=== PATIENT | female | born 1930 | race African-American/Black ===

== ENCOUNTER 2016-11-22 02:53 | Emergency (ER) | payer MEDICARE, MEDICAID ==
[2016-11-22 04:34] LABS: ALT (SGPT) 16 U/L (8-55); AST (SGOT) 31 U/L (5-34); Alkaline Phosphatase 125 U/L (40-150); Anion Gap 11 mmol/L (10-20); BUN (Urea Nitrogen) 24 mg/dL (9.8-20.1); Bilirubin, Total 0.5 mg/dL (0.2-1.2); Calc. Creatinine Clearance 0 mL/min (70-130); Calcium 9.3 mg/dL (7.8-10.44); Carbon Dioxide 23 mmol/L (23-31); Chloride 109 mmol/L (98-107); Estimated GFR-MDRD 57; Globulin 4.3 g/dL (2.4-3.5); Protein, Total 7.7 g/dL (6.0-8.3)
[2016-11-22 04:37] LABS: Hematocrit 25.4 % (36.0-47.0); Mean Platelet Volume 12.8 fL (7.4-10.4); Red Blood Cell (RBC) Count 3.94 mill/uL (4.20-5.40); White Blood Cell (WBC) Count 7.6 thou/uL (4.8-10.8)
[2016-11-22 04:45] LABS: #Lymphocytes 0.3 thou/uL (1.20-3.40); #Monocytes 0.4 thou/uL (0.11-0.59); #Neutrophils 6.9 thou/uL (1.40-6.50); %Eosinophils 0.4 % (0.0-10.0); %Lymphocytes 4.5 % (21.0-51.0); %Monocytes 4.9 % (0.0-10.0); Anisocytosis MODERATE=16-30 cells (100X) (0-5/hpf); Hypochromia SLIGHT = 6-15 cells (100X) (0-5/hpf); Microcytosis MODERATE=15-30 cells (100X) (0-5/hpf); Poikilocytosis MODERATE=16-30 cells (100X) (0-5/hpf); Polychromasia SLIGHT = 2-3 cells (100X) (0-2/hpf); Schistocytes MODERATE= 6-15 cells (100X) (0-1/hpf); Target Cells SLIGHT = 2-5 cells (100X) (0-1/hpf); Tear Drops SLIGHT = 2-5 cells (100X) (0-1/hpf)
[2016-11-22 05:17] LABS: Bilirubin Negative (Negative); Blood, Urine Trace (Negative); Glucose, Urine (Dipstick) Negative (Negative); Ketone, Urine Negative (Negative); Nitrite Negative (Negative); Protein, Urine (Dipstick) 100 mg/dL (Neg-Trace); Urobilinogen 0.2 mg/dL (0.2-1.0)
[2016-11-22 05:20] LABS: Bacteria/HPF None Seen HPF (None Seen); Hyaline Casts/LPF 7-10 HYALINE CAST LPF (0-3 Hyaline); RBC/HPF 0-3 HPF (0-3); Squamous Epithelial 0-3 HPF (0-3); WBC/HPF 0-3 HPF (0-3)
--- NOTE | 2016-11-22 07:59 | RAD ---
PORTABLE CHEST: Date: 11/22/16 COMPARISON: 07/23/16. FINDINGS: The heart size is enlarged. There are atherosclerotic changes of the aorta. Increased interstitial a lveolar lung changes are more parahilar in distribution, suggestive of pulmonary edema. Changes are more confluent in the right base. It is difficult to exclude a coexistent pneumonia. IMPRESSION: Cardiomegaly with pulmonary edema changes asymmetrically involving the right lung base. This could j ust represent an asymmetric edema pattern, although infiltrate should also be considered. POS: [facility]
--- NOTE | 2016-11-22 08:32 | CT ---
PRELIMINARY REPORT/[facility]/EMERGENCY AFTER HOURS PROCEDURE: EXAM: CT Head Without Intravenous Contrast EXAM DATE/TIME: Exam ordered 11/22/2016 4:19 AM CLINICAL HISTORY: 86 years old, female; Injury or trauma; Fall; Initial encounter; Blunt trauma (contusions or hematom as); Consciousness not specified; Patient HX: S/P fall TECHNIQUE: Axial computed tomography images of the head/brain without intravenous contrast. COMPARISON: No relevant prior studies available. FINDINGS: Brain: Volume loss and chronic small vessel ischemic change. No hemorrhage. Ventricles: Unremarkable. No ventriculomegaly. Bones/joints: Unremarkable. No acute fracture. Soft tissues: Unremarkable. Sinuses: Unremarkable as visualized. No acute sinusitis. Mastoid air cells: Unremarkable as visualized. No mastoid effusion. IMPRESSION: No acute findings. Thank you for allowing us to participate in the care of your patient. Dictated and Authenticated by: Nick Montano MD 11/22/2016 4:44 AM Central Time ([place] \[place]\ [place]) FINAL REPORT CT BRAIN WITHOUT CONTRAST: I agree with the preliminary report given by Dr. Nick Montano of [facility]. POS: [facility]
--- NOTE | 2016-11-22 08:33 | CT ---
PRELIMINARY REPORT/[facility]/EMERGENCY AFTER HOURS PROCEDURE: EXAM: CT Cervical Spine Without Intravenous Contrast EXAM DATE/TIME: Exam ordered 11/22/2016 4:22 AM CLINICAL HISTORY: 86 years old, female; Injury or trauma; Fall; Initial encounter; Blunt trauma; Patient HX: S/P fall TECHNIQUE: Axial computed tomography images of the cervical spine without intravenous contrast. COMPARISON: No relevant prior studies available. FINDINGS: Vertebrae: Unremarkable. No acute fracture. Discs/spinal canal/neural foramina: Degenerative change. No fracture. Chronic pannus formation and e rosion at C1-C2 may indicate inflammatory arthritis. No spinal canal stenosis. Soft tissues: Unremarkable. Lung apices: Incompletely visualized right pleural effusion. IMPRESSION: 1. No fracture. 2. Incompletely visualized right pleural effusion. 3. Chronic findings as above. Thank you for allowing us to participate in the care of your patient. Dictated and Authenticated by: Nick Montano MD 11/22/2016 4:53 AM Central Time ([place] \[place]\ [place]) FINAL REPORT CT CERVICAL SPINE WITH CORONAL AND SAGITTAL REFORMATIONS: I agree with the preliminary report given by Dr. Nick Montano of [facility]. POS: [facility]
== END 2016-11-22 07:28 | disposition home or self-care (01) ==
LOC: ERS 02:53
DX: S00.93XA Contusion of unspecified part of head, initial encounter (principal); J90 Pleural effusion, not elsewhere classified; T68.XXXA Hypothermia, initial encounter; I11.0 Hypertensive heart disease with heart failure; I50.9 Heart failure, unspecified; M19.90 Unspecified osteoarthritis, unspecified site; Z79.82 Long term (current) use of aspirin; Z79.899 Other long term (current) drug therapy; W06.XXXA Fall from bed, initial encounter; Y92.129 Unspecified place in nursing home as the place of occurrence of the external cause
CPT/HCPCS: 36415; 36416; 51701; 70450; 71010; 72125; 80053; 81003; 81015; 85025; 85060; A4353

== ENCOUNTER 2017-02-10 14:00 | Outpatient (CLI) | payer MEDICARE, MEDICAID ==
--- NOTE | 2017-02-10 17:22 | RAD ---
CHEST 2 VIEWS: Date: 02/10/17 HISTORY: Dyspnea. COMPARISON: 11/22/16. FINDINGS: Elongation of aorta. Cardiomegaly. Pulmonary vessels and hilum are normal. Costophrenic angles appear to be clear. Lungs are hyperinflated. Chronic changes are noted. No pneumothorax. Diffuse bone demin eralization. There is atherosclerosis of the aortic knob. IMPRESSION: 1. COPD. Hyperinflation. No acute process. 2. Atherosclerosis and elongation of aorta. POS: [facility]
== END 2017-02-10 14:01 | disposition home or self-care (01) ==
LOC: RAD 14:00
PROVIDERS: ATTEND Internal Medicine
DX: R06.00 Dyspnea, unspecified (principal); J44.9 Chronic obstructive pulmonary disease, unspecified; I70.0 Atherosclerosis of aorta
CPT/HCPCS: 71020

== ENCOUNTER 2017-09-04 02:21 | Inpatient (IN) | payer MEDICARE, MEDICAID ==
[2017-09-04 03:20] LABS: #Lymphocytes 0.5 thou/uL (1.20-3.40); #Monocytes 0.4 thou/uL (0.11-0.59); #Neutrophils 8.1 thou/uL (1.40-6.50); %Eosinophils 0.4 % (0.0-10.0); %Lymphocytes 5.8 % (21.0-51.0); %Monocytes 4.4 % (0.0-10.0); %Neutrophils 89.4 % (42.0-75.0); Hemoglobin 10.9 g/dL (12.0-16.0); Mean Corpuscular HGB CONC 30.6 g/dL (32.0-36.0); Mean Corpuscular Hemoglobin 19.9 pg (27.0-31.0); Mean Corpuscular Volume 64.9 fL (78.0-98.0); Mean Platelet Volume 8.8 fL (7.4-10.4); Platelet Count 160 thou/uL (130-400); RBC Distribution Width 19.8 % (11.5-14.5); Red Blood Cell (RBC) Count 5.49 mill/uL (4.20-5.40); Reflex for Review?? NO; White Blood Cell (WBC) Count 9.1 thou/uL (4.8-10.8)
[2017-09-04 03:24] LABS: Prothrombin Time 13.3 SEC (12.0-14.7)
[2017-09-04 03:31] LABS: ALT (SGPT) 12 U/L (8-55); AST (SGOT) 15 U/L (5-34); Albumin 3.5 g/dL (3.4-4.8); Alkaline Phosphatase 170 U/L (40-150); Anion Gap 16 mmol/L (10-20); BUN (Urea Nitrogen) 44 mg/dL (9.8-20.1); Bilirubin, Total 0.3 mg/dL (0.2-1.2); Calc. Creatinine Clearance 0 mL/min (70-130); Calcium 9.7 mg/dL (7.8-10.44); Carbon Dioxide 20 mmol/L (23-31); Chloride 99 mmol/L (98-107); Estimated GFR-MDRD 25; Globulin 4.4 g/dL (2.4-3.5); Potassium 4.7 mmol/L (3.5-5.1); Protein, Total 7.9 g/dL (6.0-8.3); Sodium 130 mmol/L (136-145)
[2017-09-04 03:33] LABS: Bilirubin Negative (Negative); Blood, Urine Small (Negative); Clarity CLEAR (Clear); Glucose, Urine (Dipstick) >=1000 mg/dL (Negative); Leukocyte Negative (Negative); Nitrite Negative (Negative); Protein, Urine (Dipstick) 30 mg/dL (Neg-Trace)
[2017-09-04 03:38] LABS: Bacteria/HPF None Seen HPF (None Seen); Hyaline Casts/LPF 0-3 HYALINE CAST LPF (0-3 Hyaline); Pathc Cast-AUWi Flag 0.29 (0-2.49); RBC/HPF 0-3 HPF (0-3); Squamous Epithelial 0-3 HPF (0-3); WBC/HPF 0-3 HPF (0-3)
[2017-09-04 03:38] LABS: CKMB 4.7 ng/mL (0-6.6); Troponin I 0.166 ng/mL (< 0.028)
[2017-09-04 03:45] LABS: Glucose 675 mg/dL (83-110)
[2017-09-04 04:01] LABS: Base Excess-Venous 0.5 mmol/L (0 (+/- 2.5)); Bicarbonate (HCO3v) 26.1 mmol/L (1.0-85.0); CO2 Tension (PvCO2) 44.4 mmHg (41.0-51.0); Calcium, Ionized 1.19 mmol/L (1.12-1.32); Hemoglobin - Calc 13.1 g/dL (12.0-18.0); O2 Tension (PvO2) 34.6 mmHg (35.0-45.0); Potassium 4.7 mmol/L (3.4-4.7); T. Carbon Dioxide 27.4 mmol/L (1.0-85.0); pH (Venous) 7.377 (7.35-7.45); vO2 Saturation-calc 64.8 % (94-98)
[2017-09-04] MEDS ORDERED: Insulin Regular 300 UNITS/3 ML VIAL ONE (04:02)
[2017-09-04] MEDS ORDERED: HumaLOG 300 UNITS/3 ML VIAL ONE (04:33)
[2017-09-04] MEDS ORDERED: Insulin Glargine 10 UNITS in Pre-Filled Syringe 1 EACH SC SCH (04:45)
[2017-09-04] MEDS ORDERED: Sodium Chloride 0.9% 1,000 ML IV SCH (05:45)
[2017-09-04 06:46] VITALS: BMI 36.8
[2017-09-04 07:29] LABS: Troponin I 0.238 ng/mL (< 0.028)
--- NOTE | 2017-09-04 08:05 | CT ---
BRAIN CT WITHOUT IV CONTRAST: HISTORY: An 87-year-old female with a history of altered mental status. COMPARISON: 11/22/16 and 07/23/16. FINDINGS: There is motion artifact despite repeating the scan. There is some abnormal low-attenuation change i n the lateral left temporal lobe as well as the left parietal parasagittal region consistent with are as of old infarct or other old insults. No mass or bleed. IMPRESSION: Atrophy and chronic white matter ischemic changes with several small left-sided infarct changes, stab le. No acute process. POS: [facility]
--- NOTE | 2017-09-04 08:32 | RAD ---
AP VIEW OF THE CHEST: INDICATION: Altered mental status. COMPARISON: Prior exam dated 02/10/17. FINDINGS: There is moderate to severe cardiomegaly. There is mild pulmonary vascular congestion. No pleural e ffusion is evident. No focal consolidation is evident. No pneumothorax is evident. IMPRESSION: Cardiomegaly with pulmonary vascular congestion. POS: [facility]
[2017-09-04] MEDS ORDERED: Prevnar 13-Val Conj/PF 0.5 ML SYRINGE IM ONE (08:45)
[2017-09-04] MEDS ORDERED: Bisacodyl 5 MG TAB PO PRN (09:28)
[2017-09-04] MEDS ORDERED: Acetaminophen 325 MG TAB PO PRN (09:28)
[2017-09-04] MEDS ORDERED: Acetaminophen 650 MG Suppository PR PRN (09:28)
[2017-09-04] MEDS ORDERED: Docusate 100 MG CAP PO PRN (09:33)
[2017-09-04] MEDS ORDERED: Dextrose 50% Abboject 50 ML SYRINGE SLOW IVP PRN (09:34)
[2017-09-04] MEDS ORDERED: Dextrose 5% in Water 1,000 ML IV PRN (09:34)
--- NOTE | 2017-09-04 11:53 | PDOC.EVN ---
Event Note - Event Note Event Note: 7:40-8AM Advanced Care Plan discussed with daughter Micki Le. Discussed re: probable new diagnosis of diabetes mellitus, probable ischemic CVA. Also discussed code status. Patient is DNR and continues to be DNR.
[2017-09-04 12:08] LABS: Hemoglobin A1c 11.1 % (4.0-6.0)
--- NOTE | 2017-09-04 12:13 | HP ---
PRIMARY CARE PROVIDER: Denise Varela M.D. CHIEF COMPLAINT: Weakness. HISTORY OF PRESENT ILLNESS: Ms. Parada is a pleasant 87-year-old lady, who was seen at [facility] on 09/04/2017. Patient herself is unable to provide any significant history. Collateral history was obtained from daughter by the bedside as well as review of medical records and discussion with the emergency room physician. The patient is a resident at [facility], and her daughter works at the same facility. jacqueline sees her everyday. She was reportedly doing well yesterday. Overnight, the patient was noted to h ave right-sided weakness. She was also reportedly having slurred speech. She was therefore sent to the emergency room. The patient denies any chest pain. She denies any shortness of breath. She denies any cough, fevers or chills. However, patient is a poor historian overall and therefore review of systems could not b e completed. REVIEW OF OTHER SYSTEMS: Could not be completed because patient is not a good historian. PAST MEDICAL HISTORY: Significant for hypertension, transient ischemic attack, chronic kidney diseas e stage 3, hysterectomy, rhabdomyolysis, congestive heart failure. I note that during her hospitaliz ation here in 06/2016, there was concern about diabetes as well. Currently, she is not on any diabet es medications. PAST SURGICAL HISTORY: Hysterectomy. SOCIAL HISTORY: No history of tobacco use, alcohol use, or recreational drug use. CODE STATUS: I discussed her code status. Ms. Parada is DNR. ALLERGIES: No known drug allergies. CURRENT MEDICATIONS: Amlodipine 10 mg 2 times a day, ferrous sulfate 325 mg 2 times a day, lisinopri l 5 mg daily, multivitamins 1 tablet daily, and Lasix 60 mg daily. FAMILY HISTORY: No family history of premature coronary artery disease. PHYSICAL EXAMINATION: GENERAL: Ms. Parada is awake and alert, not in acute distress. VITAL SIGNS: She is afebrile. Blood pressure is 134/95, pulse 88, respiratory rate of 24, and oxyge n saturations 100% on room air. She is afebrile. She is obese, with a BMI of 36.9. EYES: No scleral icterus. No conjunctival pallor. ENT: Moist mucosal membranes, no oropharyngeal erythema or exudates. NECK: Supple, nontender, trachea is midline. RESPIRATORY: Accessory muscles of breathing are not active. Chest wall movements are symmetric bila terally. LUNGS: Clear to auscultation without wheeze, rhonchi or crepitations. CARDIOVASCULAR: S1 and S2 are heard, regular. Peripheral pulses palpable. No carotid bruit, no per icardial rub. ABDOMEN: Soft, nontender, bowel sounds are heard, no hepatomegaly, no splenomegaly. NEUROLOGIC: Full neurologic examination was not possible secondary to the patient's noncooperation. The patient has left-sided hemineglect. No facial droop. Deep tendon reflexes are 2+, plantars rose ngoing bilaterally. MUSCULOSKELETAL: Power is 5/5 in the right upper and lower extremities. Difficult to assess power i n the left upper and lower extremities due to left-sided hemineglect. SKIN: No rashes or subcutaneous nodules. LYMPHATIC: No cervical lymphadenopathy. PSYCHIATRIC: Normal mood, normal affect, patient is oriented to person, place, and time. LABORATORY DATA: Ms. Parada's labs and investigations were reviewed. I reviewed her electrocardiog terese, which shows sinus tachycardia, no ST changes to suggest an acute coronary syndrome. I also revi ewed her chest x-ray, which does not show any pulmonary infiltrates. She has pulmonary vascular brenda estion. Noncontrast CT scan of the brain did not show any acute intracranial process. She has phillip l white count, microcytic anemia with hemoglobin 10.9, normal platelet count, INR 1.0, sodium decreas ed at 130, normal potassium, creatinine elevated at 2.21, last known creatinine 1.09 in 10/2016, gluc ose elevated at 675, normal anion gap of 16, carbon dioxide slightly decreased at 20, unremarkable li kandi profile and indeterminate troponin I of 0.166, troponin was elevated in the past as well. Urinal ysis is positive for protein, glucose, and small amount of blood. Beta hydroxybutyrate is elevated a t 0.43. ASSESSMENT AND PLAN: Ms. Parada is a pleasant 87-year-old lady, who was seen at [facility] on 09/04/2017. Her problem list includes: 1. Acute on chronic renal failure: Likely prerenal. We will provide patient with gentle hydration, considering the fact that she may also be in a certain degree of volume overload. We will hold neph rotoxic medications including lisinopril. We will recheck creatinine level. 2. Diabetes mellitus. The patient appears to have diabetes mellitus. She did not have a history of diabetes mellitus in the past, according to her daughter. We will check hemoglobin A1c level. We w ill start patient on Accu-Cheks and insulin sliding scale. Currently, patient does not appear to be in diabetic ketoacidosis. 3. Weakness: We will investigate further, including MRI brain to rule out cerebrovascular accident, carotid Dopplers, and 2D echocardiogram. We will also consult Neurology Service. 4. Hypertension: Monitor vital signs, titrate antihypertensives as needed. 5. Congestive heart failure. Monitor oxygenation levels since patient will be receiving hydration f or renal insufficiency. Many thanks for allowing me to participate in your patient's care. Please feel free to contact me wi th any questions or concerns. LEVEL OF RISK: High. LEVEL OF COMPLEXITY: High.
--- NOTE | 2017-09-04 14:46 | ULT ---
CAROTID DOPPLER: DATE: 09/04/17. PROVIDED CLINICAL HISTORY: CVA. FINDINGS: Comparison 04/27/14. There is no evidence for a hemodynamically significant internal carotid artery st enosis by peak systolic velocity or ratio criteria. Antegrade flow is seen in the vertebral arteries . Atherosclerotic plaque is seen involving the left proximal ICA. IMPRESSION: No sonographic evidence for a hemodynamically significant internal carotid artery stenosis. POS: [facility]
[2017-09-04] MEDS: Acetaminophen 500 MG TAB PO SCH ×3 (15:30→23:45)
[2017-09-04] MEDS: traMADol HCl 50 MG TAB PO SCH ×3 (15:30→23:45)
[2017-09-04] MEDS: HumaLOG 300 UNITS/3 ML VIAL SC PRN (15:37)
[2017-09-04] MEDS: Sodium Chloride 0.9% 1,000 ML IV SCH (22:47)
[2017-09-04] MEDS: Ferrous Sulfate 325 MG TAB PO SCH (22:47)
--- NOTE | 2017-09-04 23:45 | CON ---
DATE OF CONSULTATION: 09/04/2017 CONSULTING PHYSICIAN: Hospitalist Service. IMPRESSION: 1. Transient ischemic attack with transient right-sided weakness. 2. Small vessel ischemic disease. 3. Diabetes. 4. Current aspirin use. PLAN: 1. Add statin. 2. Continue aspirin. 3. Patient can be discharged back to the residential. Ms. Parada is an 87-year-old black female with a history of diabetes and general debilitation. She was in a residential. Daughter reports she is unable to walk. She can feed herself, but otherwise requires assistance for all her daily care. She apparently had a change last evening where she devel oped some right-sided weakness. She was brought into the emergency room for evaluation. CT scan of the brain showed chronic small vessel ischemic changes. Her carotid ultrasound does not show any ext racranial stenosis. Her lab work was unremarkable other than elevated blood glucose. PAST MEDICAL HISTORY: Diabetes, arthritis. ALLERGIES: None. SOCIAL HISTORY: No tobacco use. FAMILY HISTORY: Noncontributory. REVIEW OF SYSTEMS: She has no complaints of headache, nausea, chest pain or shortness of breath. PHYSICAL EXAMINATION: GENERAL: She is a fairly overweight, elderly lady lying in bed in no distress. HEENT: Pupils are minimally reactive. Conjunctivae are clear. She is edentulous. NECK: Supple, no lymphadenopathy noted. EXTREMITIES: No cyanosis present. NEUROLOGIC: She is alert and cooperative. Her speech is fluent and clear. She is quite deaf. Cran ial nerves were otherwise intact. Motor exam showed good antigravity strength bilaterally. Her fing er-to-nose movements were accurate. Sensation was grossly intact. Gait is not testable. No abnorma l movements were seen. Studies were reviewed. SUMMARY: This is an elderly lady who is quite debilitated. She was on aspirin prior to the transien t event. I think I would add a statin. At this point, she does not appear to need a cardiac workup based on her lack of history of problems in this area. I do not think an MRI of the brain would add to her care.
[2017-09-05] MEDS: Sodium Chloride 0.9% 1,000 ML IV SCH ×2 (03:34→13:00)
[2017-09-05 05:44] LABS: Anion Gap 9 mmol/L (10-20); BUN (Urea Nitrogen) 21 mg/dL (9.8-20.1); Calc. Creatinine Clearance 47 mL/min (70-130); Carbon Dioxide 23 mmol/L (23-31); Cardiac Risk 6.6 (Less than 4.5); Chloride 110 mmol/L (98-107); Cholesterol 186 mg/dl (< 200 Desired); Estimated GFR-MDRD 48; Glucose 236 mg/dL (83-110); HDL Cholesterol 28 mg/dL (>60 Neg Risk); LDL Cholesterol, Calculated 138 mg/dL; Sodium 138 mmol/L (136-145); Triglycerides 98 mg/dL (Less than 150)
[2017-09-05 06:03] LABS: #Eosinphils 0.1 thou/uL (0.0-0.7); #Lymphocytes 1.6 thou/uL (1.20-3.40); #Monocytes 0.6 thou/uL (0.11-0.59); #Neutrophils 4.1 thou/uL (1.40-6.50); %Basophils 0.3 % (0.0-1.0); %Eosinophils 1.8 % (0.0-10.0); %Lymphocytes 25.7 % (21.0-51.0); %Monocytes 8.7 % (0.0-10.0); %Neutrophils 63.6 % (42.0-75.0); Hemoglobin 9.6 g/dL (12.0-16.0); Mean Corpuscular Hemoglobin 19.6 pg (27.0-31.0); Mean Corpuscular Volume 65.2 fL (78.0-98.0); Platelet Count 181 thou/uL (130-400); RBC Distribution Width 19.5 % (11.5-14.5); White Blood Cell (WBC) Count 6.4 thou/uL (4.8-10.8)
[2017-09-05] MEDS: Acetaminophen 500 MG TAB PO SCH ×3 (06:38→19:29)
[2017-09-05] MEDS: traMADol HCl 50 MG TAB PO SCH ×3 (06:38→19:29)
[2017-09-05] MEDS: HumaLOG 300 UNITS/3 ML VIAL SC PRN ×2 (06:39→13:10)
[2017-09-05] MEDS: glyBURIDE 5 MG TAB PO SCH (08:43)
[2017-09-05] MEDS: Ferrous Sulfate 325 MG TAB PO SCH ×2 (08:43→21:11)
[2017-09-05] MEDS: Multivit, Therapeutic 1 TAB PO SCH (08:44)
[2017-09-05] MEDS: Furosemide 20 MG TAB PO SCH (08:44)
[2017-09-05] MEDS: Amlodipine 10 MG TAB PO SCH (08:44)
[2017-09-05] MEDS: Enoxaparin Sodium 40 MG/0.4 ML SYRINGE SC SCH (08:44)
[2017-09-05] MEDS ORDERED: Lisinopril 5 MG TAB PO SCH (09:00)
[2017-09-05] MEDS ORDERED: Lisinopril 10 MG TAB PO SCH (09:00)
[2017-09-05] MEDS ORDERED: MULTIVITAMIN PO SCH (09:00)
[2017-09-05] MEDS ORDERED: Aspirin 325 mg Enteric Coated Tablet PO SCH (09:00)
--- NOTE | 2017-09-05 16:23 | PDOC.PN ---
- Subjective Encounter Start Date: 09/05/17 Encounter Start Time: 07:20 Pt seen for followup re: acute renal failure. Denies chest pain, shortness of breath, fevers or chills. - Objective Resuscitation Status: Resuscitation Status DNR:Do Not Resuscitate MAR Reviewed: Yes Vital Signs & Weight: Vital Signs (12 hours) Temp Pulse Pulse Pulse Resp BP BP 09/05/17 15:33 98.7 F 98 16 09/05/17 11:31 98.5 F 85 16 09/05/17 11:29 93 88 149/79 H 119/73 09/05/17 08:44 77 09/05/17 08:43 98.5 F 77 16 09/05/17 07:42 98.5 F 77 16 BP Pulse Ox 09/05/17 15:33 112/69 97 09/05/17 11:31 124/71 95 09/05/17 11:29 09/05/17 08:44 09/05/17 08:43 95 09/05/17 07:42 120/70 95 Weight Admit Weight 215 lb Weight 215 lb Result Diagrams: 09/05/17 04:56 09/05/17 04:56 Additional Labs: Accuchecks 09/05/17 09/05/17 09/04/17 10:53 05:46 20:24 POC Glucose 222 H 248 H 285 H 09/04/17 17:10 POC Glucose 227 H EKG Reviewed by me: Yes (Tele: [place]) Phys Exam - Physical Examination Constitutional: NAD HEENT: moist MMs Neck: supple Respiratory: clear to auscultation bilateral Cardiovascular: RRR Gastrointestinal: soft Neurological: moves all 4 limbs Psychiatric: normal affect Dx/Plan (1) JULIA (acute kidney injury) Code(s): N17.9 - ACUTE KIDNEY FAILURE, UNSPECIFIED Status: Acute Comment: Improving (2) Weakness Code(s): R53.1 - WEAKNESS Status: Acute Comment: Improved, appreciate neurology input (3) Arrhythmia Code(s): I49.9 - CARDIAC ARRHYTHMIA, UNSPECIFIED Status: Acute Comment: cardiology consult pending (4) Dementia Code(s): F03.90 - UNSPECIFIED DEMENTIA WITHOUT BEHAVIORAL DISTURBANCE Status: Chronic Qualifiers: Dementia type: Alzheimer's disease Alzheimer's disease onset: unspecified onset Dementia behavioral disturbance: without behavioral disturbance Qualified Code(s): G30.9 - Alzheimer's disease, unspecified; F02.80 - Dementia in other diseases classified elsewhere without behavioral disturbance; F02.80 - Dementia in other diseases classified elsewhere without behavioral disturbance; F02.80 - Dementia in other diseases classified elsewhere without behavioral disturbance Comment: stable (5) HTN (hypertension) Code(s): I10 - ESSENTIAL (PRIMARY) HYPERTENSION Status: Chronic Qualifiers: Hypertension type: essential hypertension Qualified Code(s): I10 - Essential (primary) hypertension Comment: Monitor vital signs, titrate antihypertensives as needed - Plan * . Review of Systems - Medications/Allergies Allergies/Adverse Reactions: Allergies Allergy/AdvReac Type Severity Reaction Status Date / Time No Known Allergies Allergy Verified 09/04/17 06:43 Medications: Current Medications Acetaminophen (Tylenol) 650 mg PO Q4H PRN PRN Reason: Headache/Fever or Pain Acetaminophen (Tylenol) 650 mg [place] Q4H PRN PRN Reason: Headache/Fever or Pain Acetaminophen (Tylenol) 500 mg PO Q6HR [facility] Last Admin: 09/05/17 13:20 Dose: Not Given Amlodipine Besylate (Norvasc) 10 mg PO DAILY [facility] Last Admin: 09/05/17 08:44 Dose: 10 mg Aspirin (Aspirin) 325 mg PO DAILY [facility] Atorvastatin Calcium (Lipitor) 10 mg PO HS [facility] Bisacodyl (Dulcolax) 10 mg PO DAILYPRN PRN PRN Reason: Constipation Dextrose/Water (Dextrose 50%) 25 gm SLOW IVP PRN PRN PRN Reason: Hypoglycemia Docusate Sodium (Colace) 300 mg PO HS PRN PRN Reason: Constipation Enoxaparin Sodium (Lovenox) 40 mg SC 0900 [facility] Last Admin: 09/05/17 08:44 Dose: 40 mg Ferrous Sulfate (Feosol) 325 mg PO BID [facility] Last Admin: 09/05/17 08:43 Dose: 325 mg Furosemide (Lasix) 20 mg PO DAILY [facility] Last Admin: 09/05/17 08:44 Dose: 20 mg Glucagon (Glucagon) 1 mg IM PRN PRN PRN Reason: Hypoglycemia Glyburide (Diabeta) 5 mg PO QAM-WM [facility] Last Admin: 09/05/17 08:43 Dose: 5 mg Dextrose/Water (D5w) 1,000 mls @ 0 mls/hr IV .Q0M PRN; As Directed PRN Reason: Hypoglycemia Sodium Chloride (Normal Saline 0.9%) 1,000 mls @ 70 mls/hr IV .[id number] [facility] Last Admin: 09/05/17 13:00 Dose: 1,000 mls Insulin Human Lispro (Humalog) 0 units SC .MILD SLIDING SCALE PRN PRN Reason: Mild Correctional Scale Last Admin: 09/05/17 13:10 Dose: 3 unit Multivitamins (Theragran) 1 tab PO DAILY [facility] Last Admin: 09/05/17 08:44 Dose: 1 tab Sodium Chloride (Flush - Normal Saline) 10 ml IVF Q12HR [facility] Last Admin: 09/05/17 08:44 Dose: 10 ml Sodium Chloride (Flush - Normal Saline) 10 ml IVF PRN PRN PRN Reason: Saline Flush Tramadol HCl (Ultram) 50 mg PO Q6HR [facility] Last Admin: 09/05/17 13:20 Dose: Not Given
[2017-09-05] MEDS ORDERED: Atorvastatin Calcium 10 MG TAB PO SCH (21:00)
[2017-09-06] MEDS: traMADol HCl 50 MG TAB PO SCH ×3 (00:41→12:53)
[2017-09-06] MEDS: Acetaminophen 500 MG TAB PO SCH ×3 (00:41→12:53)
[2017-09-06] MEDS: Sodium Chloride 0.9% 1,000 ML IV SCH (03:30)
[2017-09-06 05:19] LABS: Anion Gap 10 mmol/L (10-20); BUN (Urea Nitrogen) 16 mg/dL (9.8-20.1); Calc. Creatinine Clearance 62 mL/min (70-130); Calcium 8.9 mg/dL (7.8-10.44); Carbon Dioxide 22 mmol/L (23-31); Chloride 109 mmol/L (98-107); Estimated GFR-MDRD 68; Glucose 132 mg/dL (83-110); Potassium 3.4 mmol/L (3.5-5.1); Sodium 138 mmol/L (136-145)
[2017-09-06 05:42] LABS: #Eosinphils 0.2 thou/uL (0.0-0.7); #Lymphocytes 1.6 thou/uL (1.20-3.40); #Monocytes 0.5 thou/uL (0.11-0.59); #Neutrophils 4.4 thou/uL (1.40-6.50); %Basophils 0.2 % (0.0-1.0); %Eosinophils 2.5 % (0.0-10.0); %Lymphocytes 23.3 % (21.0-51.0); %Monocytes 7.4 % (0.0-10.0); %Neutrophils 66.6 % (42.0-75.0); Hemoglobin 9.6 g/dL (12.0-16.0); Mean Corpuscular Hemoglobin 19.8 pg (27.0-31.0); Mean Corpuscular Volume 65.9 fL (78.0-98.0); Mean Platelet Volume 8.9 fL (7.4-10.4); Platelet Count 217 thou/uL (130-400); RBC Distribution Width 19.8 % (11.5-14.5); Red Blood Cell (RBC) Count 4.86 mill/uL (4.20-5.40); White Blood Cell (WBC) Count 6.7 thou/uL (4.8-10.8)
--- NOTE | 2017-09-06 08:33 | PDOC.CTH ---
<Nica Quintanilla - Last Filed: 09/06/17 08:29> Cardiology Progress Note - Subjective The pt seen and examined. No overnight events. No cardiac complaints. She is resting well at this time without any cardiac complaints. - Objective Vital Signs Temp Pulse Resp BP Pulse Ox 09/06/17 07:47 98.2 F 76 16 130/64 97 09/06/17 04:00 98.6 F 85 18 135/84 98 09/06/17 00:47 63 117/66 09/06/17 00:00 98.5 F 83 18 172/78 H 98 09/05/17 20:47 98.0 F 63 18 98 Admit Weight 215 lb Weight 213 lb 3.2 oz - Physical Examination General/Neuro: other: (confused) Lungs: other: (diminished at bases) Heart: RRR Abdomen: soft Extremities: other: (1+ pitting BLE edema) - Telemetry Telemetry Rhythm: SR 80s - Labs Result Diagrams: 09/06/17 04:31 09/06/17 04:31 Troponin/CKMB CK-MB (CK-2) 4.7 ng/mL (0-6.6) 09/04/17 03:04 Troponin I 0.270 ng/mL (< 0.028) H 09/04/17 09:48 - Assessment/Plan 1. 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 VS is stable 2. JULIA on CKD - improved; stop NS IV now. 3. HTN - stable with current medication 4. Hyperlipidemia - on Statin 5. PAD - asymptomatic; cont. to monitor 6. Dementia - stable MAR reviewed * Echo on 09/05/17 showed EF 55-60%, grade I diastolic dysfunction, mild MR, AR , TR, and HI. * From Cardiac standpoint, the pt is stable to tx to [facility]. Review of Systems - Review of Systems Constitutional: reports: no symptoms reported EENTM: reports: no symptoms reported Respiratory: reports: no symptoms reported Cardiac (ROS): reports: no symptoms reported ABD/GI: reports: no symptoms reported : reports: no symptoms reported Musculoskeletal: reports: no symptoms reported Skin: reports: no symptoms reported <Pipe Arias - Last Filed: 09/07/17 22:11> Cardiology Progress Note - Objective Admit Weight 215 lb Weight 213 lb 3.2 oz - Labs Result Diagrams: 09/06/17 04:31 09/06/17 04:31 Troponin/CKMB CK-MB (CK-2) 4.7 ng/mL (0-6.6) 09/04/17 03:04 Troponin I 0.270 ng/mL (< 0.028) H 09/04/17 09:48 - Assessment/Plan Pt. was seen and eval. by me. I agree with the A/P by the POORNIMA Quintanilla.
[2017-09-06] MEDS: Enoxaparin Sodium 40 MG/0.4 ML SYRINGE SC SCH (08:46)
[2017-09-06] MEDS: Multivit, Therapeutic 1 TAB PO SCH (08:46)
[2017-09-06] MEDS: Ferrous Sulfate 325 MG TAB PO SCH (08:46)
[2017-09-06] MEDS: Amlodipine 10 MG TAB PO SCH (08:46)
[2017-09-06] MEDS: Furosemide 20 MG TAB PO SCH (08:46)
[2017-09-06] MEDS: glyBURIDE 5 MG TAB PO SCH (08:46)
[2017-09-06] MEDS ORDERED: Aspirin 325 MG TAB PO SCH (09:00)
[2017-09-06] MEDS ORDERED: Potassium Chloride 20 MEQ TAB PO SCH (11:00)
[2017-09-06 12:26] VITALS: BP 140/68; TEMP 98.8
--- NOTE | 2017-09-06 12:42 | CON ---
CARDIOLOGY CONSULT DATE OF CONSULTATION: 09/05/2017 PRIMARY CARE PHYSICIAN: Dr. Anali Mata. PRIMARY COMPRESSOR STATION ENGINEER: Dr. Mahsa Arias. REFERRING PHYSICIAN: Dr. Villanueva. REASON FOR CARDIOLOGY CONSULT: EKG change most likely second-degree AV block type 1. HISTORY OF PRESENT ILLNESS: Ms. Parada is a very pleasant 87-year-old - [place]ij[place] female with a significant history of chronic kidney disease, type 2 diabetes, hypertension, and aortic and mitral valve regurgitation. At this moment, patient is alert; however, oriented to self only. The patient's information was obtained from patient's medical record and from Dr. Mahsa Arias ' office records. The patient was transferred from halfway due to right- sided weakness. The patient's carotid Doppler study shows negative of stenosis in bilateral carotid arteries and the patient's CT scan the brain shows chronic small vessel ischemic change. Neurology consult was also done. The patient's condition is stable. There is no further evaluation for the neurologic status. However, this morning around 9:00, patient on telemetry report showed several episodes of a few seconds of second-degree AV block type 1. The patient's vital sign tend to be stable during the episodes. During the Cardiology consult assessment, the patient denies shortness of breath, palpation or fluttering in her chest, fatigue or dizziness, lightheadedness, or any other cardiac complaints. The patient had echocardiogram in 10/2013, which shows EF of 60-65%, mild mitral valve regurgitation, mild MAC, mild aortic valve sclerosis, and mild-to- moderate tricuspid regurgitation, and [id number] pulmonic insufficiency. Patient has PAVITHRA in 05/2017 for diminished pulses in lower extremities, which shows right PAVITHRA 0.78 and a left PAVITHRA 0.85, which is suggestive of mild bilateral PVCs; however, due to the patient's age and physical condition, there is no further evaluation for patient's PVD, first-degree AV block and occasional PACs and heart rate 85 and also patient's echocardiogram in 2014 shows ejection fraction 60-65%, [id number] mitral valve regurgitation, moderate aortic valve regurgitation, mild tricuspid regurgitation, mild pulmonary valve regurgitation, mild thickening of anterior mitral valve leaflet. She had a stress test was done in 2005, which shows normal and she never had a cardiac catheterization before according to the Dr. Jeffrey's office record. PAST MEDICAL HISTORY: 1. Hypertension. 2. Transient ischemic attack. 3. Chronic kidney disease, stage 3. 4. Congestive heart failure. 5. Diabetes. 6. Pneumonia. 7. Asthma. 8. Anemia. PAST SURGICAL HISTORY: 1. Hysterectomy. 2. Colonoscopy. SOCIAL HISTORY: No history of tobacco, EtOH, or illicit drug abuse. FAMILY HISTORY: There is no significant history of CAD in her family's. ALLERGIES: No known drug allergies. HOME MEDICATIONS: Travatan Z to each eye once a day, iron supplement 325 mg once a day, lisinopril 5 mg once a day, multivitamin once a day, amlodipine 10 mg once a day, Lasix 20 mg once a day. REVIEW OF SYSTEMS: Could not obtain due to confusion and she is not a good historian. However, at this moment, the patient denies any pain, shortness of breath, dizziness, lightheadedness. PHYSICAL EXAMINATION: GENERAL: The patient awake, alert, in no acute distress. VITAL SIGNS: Blood pressure 120/70, pulse is 77, respiratory rate is 16, O2 sat 95% with room air, temperature 98.5. HEAD: Normocephalic, atraumatic. EYES: Extraocular muscle movement intact. ENT: Mouth, nose, and oral mucosa are moist without lesion. NECK: Supple, normal range of motion. RESPIRATORY: Clear to auscultation bilaterally, but diminished at the bases. No wheezing, rales, or rhonchi noted. CARDIOVASCULAR: Regular rhythm. There are S1, S2. There are no S3 or S4. No bruits noted. No murmur noted. Peripheral pulses palpable, but diminished in bilateral dorsal pedis and posterior tibial and popliteal. There is no bruit to the bilateral carotid pulses. ABDOMEN: Soft, nontender. No mass to palpate. Hypoactive. MUSCULOSKELETAL: Patient able to move all extremities, but very weak. SKIN: No rash, lesion, or bruise noted. PSYCHIATRIC: Normal mood, normal affect. LABORATORY AND DIAGNOSTIC DATA: WBC 6.4, hemoglobin 9.6, hematocrit 30.2, platelet 181,000. Sodium 138, potassium 4.0, BUN 21, creatinine 1.26, glucose 236, cholesterol 186, triglyceride 98, HDL 28, LDL 138. Carotid Doppler shows no significant internal carotid artery stenosis. ASSESSMENT AND PLAN: 1. Second-degree atrioventricular block with type 1. The telemetry record shows the patient has several episodes of second-degree atrioventricular block type 1; however, due to patient's age and the patient's physical condition and also patient's chronic anemia and the kidney functions, the patient is not a good candidate for further cardiac workup and pacemaker placement at this moment. We would like to continue to monitor on the telemetry and we like to adjust the medication as appropriate. 2. Acute kidney injury on chronic renal failure. Patient's kidney function and creatinine level has been improved. We would like to continue to monitor at this moment. 3. Hypertension. The patient's blood pressure has been stable at this moment, we would like to continue current medication. 4. Diabetes type 2 seems like this is her first time finding of diagnosis of diabetes. She is on blood AC and h.s. glucose checks with a sliding scale Humalog order, which is managed by primary care doctor. 5. Peripheral vascular disease. According to Dr. Jeffrey's office record, patient had a [id number]-um-esliekxf bilateral peripheral vascular disease. However, due to patient's age and physical condition and also patient's hemoglobin and creatinine level, there are no plan for further evaluation for this condition. We would like to continue to monitor the patient's symptom at this moment. 6. Hyperlipidemia. Patient is on atorvastatin 10 mg once a day. Thank you for allowing the Cardiology Service to participate in care of this patient. We will follow along with the patient care team and make a further recommendation as appropriate. BRISSA
--- NOTE | 2017-09-06 12:43 | ADD-CON ---
ADDENDUM DATE OF CONSTATION: 09/05/2017 DATE OF ADMISSION: 09/04/2017 Please refer to the notes already dictated by the nurse practitioner Nica Quintanilla previously today. INDICATION FOR CONSULTATION: This is an 87-year-old female I followed for many years, who was in a [facility] and was felt to have a possible TIA or CVA, was sent to the emergency room, then was admi tted to the hospital for possible CVA. CT scan indicates that the patient has had old chronic ischem ic changes, but nothing acute. She still is able to give some histories verbally. She is not quite sure where she is, but she does talk. She does answer a few questions. She is really not aware of h er surroundings, but that she has had no other acute problems. It was noted on the telemetry that kieran phillips did have what appeared to be a second-degree heart block type 1 in the form of Wenckebach and this is obviously not a significant problem with this lady. She has had no other significant cardiac prob lems recently that I am aware of. She denies any chest pain, but she is not the best historian. At this time, she appears to be stable from a cardiac standpoint, her vital signs also remained stable. The heart rate is in the 80s and shows a sinus rhythm, blood pressure is like 112/69 previously was 149/79. Please refer to the notes dictated by nurse practitioner for past medical history, social history, re view of systems, allergies and medications. PHYSICAL EXAMINATION: GENERAL: Reveals an elderly female who is very pleasant. She is alert. She is not oriented. VITAL SIGNS: Her blood pressure 112/69, heart rate is 98 and regular, respiratory rate 16. She is a febrile. HEENT: Shows head to be normocephalic, atraumatic. Carotid pulses are present. I cannot hear any b ruits. CHEST: Clear to auscultation. There were no rales, rhonchi or wheezing. CARDIOVASCULAR: Exam reveals a regular rate and rhythm. She has a normal S1, S2. I cannot hear an S3 nor an S4. She has a very soft systolic murmur at the apex. She also has a very soft systolic mu rmur over the aortic area. She does have a history of aortic valve sclerosis in the past. ABDOMEN: Unremarkable. Obese. Positive bowel sounds are present. EXTREMITIES: Showed no clubbing or cyanosis. Pedal pulses are difficult to palpate. NEUROLOGIC: The patient obviously is demented, but there were no gross focal motor deficits noted at this time. She did not appear to me to have any significant left or right-sided weakness and appear s to be otherwise pretty much at her baseline. LABORATORY DATA: Shows hemoglobin 9.6, hematocrit was 32 and WBC of 6.4. Her creatinine is 1.26 wit h a BUN of 21, chloride was 110. Sodium is 138, potassium is 4.0. She does have diabetes and blood sugar is ranging anywhere between 285 down to 101. IMPRESSION: 1. Elderly female with possible transient ischemic attack, which appears to be stable at this time, I would continue her medications. She is on aspirin and has been given Lovenox in a deep venous thro mbosis prophylaxis dose, could always consider Plavix in this lady, but she obviously is at higher ri sk for falls. 2. History of hypertension. This is stable at this time. 3. History of diabetes, also appears to be relatively stable. This is being dealt with by the [facility] service. 4. Dementia, but she appears to be pretty much at her baseline. 5. Hypertension. This is under good control. We will continue her medications. At this time, I do not have any other further advice for this lady from a cardiac standpoint. 6. History of significant heart block type 2 with Wenckebach. This is only very short intermittent episodes and I would not be concerned about in this lady, otherwise, she remains in sinus rhythm, jarrod pite being 87 years old. We would be more than happy to continue to follow the patient with you, but I would leave it is my opinion that she would be stable and [facility].
--- NOTE | 2017-09-07 09:02 | DIS ---
DATE OF ADMISSION: 09/04/2017 DATE OF DISCHARGE: 09/06/2017 PRIMARY CARE PROVIDER: Denise Varela M.D. DISCHARGE DIAGNOSIS: 1. Transient ischemic attack. 2. Second degree atrioventricular block type 1. CONSULTATIONS DURING THIS HOSPITALIZATION: Cardiology, Dr. Arias, Neurology, Michel. DISCHARGE MEDICATIONS: Aspirin 325 mg daily, Lipitor 10 mg at bedtime, Norvasc 10 mg daily, acetamin ophen p.r.n., ferrous sulfate 325 mg 2 times a day, Colace 300 mg at bedtime as needed, Lasix 20 mg d aily, lisinopril 5 mg daily, multivitamins 1 tablet daily, tramadol 50 mg every 6 hours. HOSPITAL COURSE: Ms. Parada is a pleasant 87-year-old lady who was admitted to [facility] on 09/04/2017 for transient right-sided weakness. She was started on statins. Her asp irin was continued. She was seen by Neurology service. Her symptoms resolved and it was advised cookie t she be discharged back to [facility]. On 09/05/2017, she was found to have second degr ee type 1 AV block. She had a 2D echocardiogram, which showed left ventricular ejection fraction of 55-60% and diastolic dysfunction. Cardiology service did not recommend any changes to her medication s. She is being discharged back to [facility] in a stable condition. On the day of discharge, she has white count 6700, hemoglobin 9.6, platelet count 217,000, normal sod ium, decreased potassium of 3.4, which is being replaced and creatinine of 0.94. During this hospita lization, she had triglycerides 98, cholesterol 186, LDL cholesterol 138 and HDL cholesterol 28. TSH was normal at 0.7416. Many thanks for allowing me to participate in this patient's care. Please feel free to contact me wi th any questions or concerns. DISCHARGE DESTINATION: [facility]. TOTAL AMOUNT OF TIME SPENT COORDINATING THIS DISCHARGE: Thirty three minutes.
--- NOTE | 2017-09-17 12:50 | EKG ---
Test Reason : Blood Pressure : / mmHG Vent. Rate : 102 BPM Atrial Rate : 102 BPM P-R Int : 212 ms QRS Dur : 086 ms QT Int : 338 ms P-R-T Axes : 063 056 -04 degrees QTc Int : 440 ms Sinus tachycardia with 1st degree A-V block with Premature atrial complexes Abnormal QRS-T angle, consider primary T wave abnormality No STEMI Abnormal ECG Confirmed by MIRELLA Amaya, MARJAN ([id number]), science editor KIESHA CAMARA ([id number]) on 09/17/2017 12:49:56 PM Referred By: Confirmed By:MARJAN VU M.D.
== END 2017-09-06 14:21 | DRG 69 ==
LOC: ERS 02:21 → 2SE 04:16
PROVIDERS: ADMIT Internal Medicine; ATTEND Internal Medicine
DX: G45.9 Transient cerebral ischemic attack, unspecified (principal); N17.9 Acute kidney failure, unspecified; I13.0 Hypertensive heart and chronic kidney disease with heart failure and stage 1 through stage 4 chronic kidney disease, or unspecified chronic kidney disease; E11.22 Type 2 diabetes mellitus with diabetic chronic kidney disease; I15.0 Renovascular hypertension; I44.1 Atrioventricular block, second degree; E11.51 Type 2 diabetes mellitus with diabetic peripheral angiopathy without gangrene; E78.5 Hyperlipidemia, unspecified; G30.9 Alzheimer's disease, unspecified; F02.80 Dementia in other diseases classified elsewhere, unspecified severity, without behavioral disturbance, psychotic disturbance, mood disturbance, and anxiety; I50.9 Heart failure, unspecified; N18.3 Chronic kidney disease, stage 3 (moderate); D63.1 Anemia in chronic kidney disease
CPT/HCPCS: 36415; 36416; 51701; 70450; 71045; 80048; 80053; 80061; 81003; 81015; 82010; 82140; 82330; 82553; 82803; 83036; 83605; 83735; 83880; 84100; 84443; 84484; 85025; 85610; 90471; 90670; 93005; 93306; 93880; 96360; 96361; 96374; A4216; A4353; G0009; G8978-GP-CM; G8979-GP-CL; G8987-GO-CM; G8988-GO-CL; G8996-GN-CK; G8997-GN-CJ; J1650; J1815

== ENCOUNTER 2017-09-11 13:25 | Emergency (ER) | payer MEDICARE, MEDICAID ==
[~2017-09-11 13:25] MED LIST: ISOVUE-370 76%-LOCM 1 ML ONE
[2017-09-11 14:04] LABS: Hemoglobin 10.2 g/dL (12.0-16.0); Mean Corpuscular HGB CONC 31.7 g/dL (32.0-36.0); Mean Corpuscular Hemoglobin 20.6 pg (27.0-31.0); Mean Corpuscular Volume 64.9 fL (78.0-98.0); Mean Platelet Volume 8.1 fL (7.4-10.4); Platelet Count 207 thou/uL (130-400); RBC Distribution Width 19.4 % (11.5-14.5); Red Blood Cell (RBC) Count 4.96 mill/uL (4.20-5.40); White Blood Cell (WBC) Count 8.2 thou/uL (4.8-10.8)
[2017-09-11 14:25] LABS: ALT (SGPT) 40 U/L (8-55); AST (SGOT) 130 U/L (5-34); Albumin 3.2 g/dL (3.4-4.8); Alkaline Phosphatase 204 U/L (40-150); Anion Gap 13 mmol/L (10-20); BUN (Urea Nitrogen) 25 mg/dL (9.8-20.1); Bilirubin, Total 1.1 mg/dL (0.2-1.2); Calc. Creatinine Clearance 0 mL/min (70-130); Carbon Dioxide 21 mmol/L (23-31); Chloride 103 mmol/L (98-107); Estimated GFR-MDRD 41; Globulin 3.9 g/dL (2.4-3.5); Glucose 255 mg/dL (83-110); Potassium 4.6 mmol/L (3.5-5.1); Protein, Total 7.1 g/dL (6.0-8.3); Sodium 132 mmol/L (136-145)
[2017-09-11 14:30] LABS: CKMB 1.2 ng/mL (0-6.6); Troponin I 0.101 ng/mL (< 0.028)
[2017-09-11 14:42] LABS: #Lymphocytes 1.2 thou/uL (1.20-3.40); #Monocytes 0.3 thou/uL (0.11-0.59); #Neutrophils 6.6 thou/uL (1.40-6.50); %Basophils 0.1 % (0.0-1.0); %Eosinophils 0.4 % (0.0-10.0); %Lymphocytes 15.2 % (21.0-51.0); %Monocytes 3.6 % (0.0-10.0); %Neutrophils 80.7 % (42.0-75.0); Acanthocytes SLIGHT = 1-5 cells (100X) (None Seen); Anisocytosis SLIGHT = 6-15 cells (100X) (0-5/hpf); Hypochromia SLIGHT = 6-15 cells (100X) (0-5/hpf); MDiff Complete? YES; PLT Morphology Comment Appears Adequate; Schistocytes SLIGHT = 2-5 cells (100X) (0-1/hpf)
--- NOTE | 2017-09-11 15:08 | ULT ---
RIGHT UPPER QUADRANT ULTRASOUND: CLINICAL HISTORY: Right upper quadrant pain. FINDINGS: There is decreased acoustic penetration of the right upper quadrant due to patient body habitus. Thi s does limit visualization of the liver, precluding reliable evaluation. Low-level echoes in the gal lbladder lumen are present. The gallbladder wall is thickened at 4 mm. De Santiago's sign is reported as negative. No shadowing cholelithiasis. The common duct is normal. There is no ascites. IMPRESSION: 1. Decreased acoustic penetration of the right upper quadrant which limits the sensitivity of the ev aluation. 2. There is mild wall prominence of the gallbladder with low level echoes that may relate to gallbla dder sludge. Correlate clinically to exclude evidence of developing cholecystitis. POS: DENISE
--- NOTE | 2017-09-11 16:08 | CT ---
CT ABDOMEN AND PELVIS WITH CONTRAST 09/11/17 HISTORY: Abdominal pain. COMPARISON: None. FINDINGS: Some mild atelectatic changes in the lung bases. Calcified granuloma in the left lung base. No perica rdial effusion. There is a large amount of small bowel containing diastasis recti. Moderate stool burden of the recta l vault. The rectum measures up to 7 cm in size. No free intraperitoneal gas or fluid. There is mild fullness of the left adrenal gland. No nephrouret erolithiasis or hydroureteronephrosis. No significance of recently passed stone. There are a few calc ifications in both renal parenchyma felt to be more likely vascular than actual stones. Noncontrast evaluation of the liver, gallbladder, and spleen are unremarkable. There is air fluid lev el in the esophagus. Moderate facet arthropathy lower lumbar spine. Moderate degenerative changes of the pubic symphysis. IMPRESSION: 1. No nephroureterolithiasis or hydroureteronephrosis. No secondary evidence of recently passed stone. 2. No acute inflammatory process abdomen or pelvis. 3. Mild diastasis recti containing large and small bowel. No evidence of obstruction. 4. Mild stool impaction of the rectal vault. 5. Mild fullness left adrenal gland. Nonemergent adrenal protocol CT may be performed if clinica lly warranted. POS: DENISE
== END 2017-09-11 17:30 | disposition home or self-care (01) ==
LOC: ERS 13:25
DX: R10.11 Right upper quadrant pain (principal); I13.0 Hypertensive heart and chronic kidney disease with heart failure and stage 1 through stage 4 chronic kidney disease, or unspecified chronic kidney disease; I50.9 Heart failure, unspecified; N18.9 Chronic kidney disease, unspecified; Z86.73 Personal history of transient ischemic attack (TIA), and cerebral infarction without residual deficits; Z79.899 Other long term (current) drug therapy
CPT/HCPCS: 36415; 74177; 76705; 80053; 82553; 83690; 84484; 85025; 93005; 94760

== ENCOUNTER 2017-10-30 17:51 | Inpatient (IN) | payer MEDICARE, MEDICAID ==
[2017-10-30 18:55] LABS: #Eosinphils 0.1 thou/uL (0.0-0.7); #Lymphocytes 1.8 thou/uL (1.20-3.40); #Monocytes 0.4 thou/uL (0.11-0.59); #Neutrophils 3.6 thou/uL (1.40-6.50); %Basophils 0.5 % (0.0-1.0); %Eosinophils 1.1 % (0.0-10.0); %Monocytes 7.1 % (0.0-10.0); %Neutrophils 61.3 % (42.0-75.0); Hemoglobin 11.6 g/dL (12.0-16.0); Mean Corpuscular HGB CONC 29.5 g/dL (32.0-36.0); Mean Corpuscular Hemoglobin 19.7 pg (27.0-31.0); Mean Corpuscular Volume 66.8 fL (78.0-98.0); Mean Platelet Volume 7.1 fL (7.4-10.4); Platelet Count 253 thou/uL (130-400); RBC Distribution Width 22.2 % (11.5-14.5); Red Blood Cell (RBC) Count 5.89 mill/uL (4.20-5.40); White Blood Cell (WBC) Count 5.8 thou/uL (4.8-10.8)
--- NOTE | 2017-10-30 18:58 | RAD ---
PORTABLE AP CHEST X-RAY: 10/30/17 HISTORY: Chest pain. COMPARISON: 09/04/17 FINDINGS: The cardiac silhouette is magnified by projection but does appear enlarged. Pulmonary vasculature is within normal limits. Vascular calcifications are seen in a tortuous and ectatic thoracic aorta. Lung s are clear. There has been no significant interval change from prior study. IMPRESSION: 1. No acute cardiopulmonary process. 2. Cardiomegaly. 3. Ectasia and tortuosity of the thoracic aorta. POS: DENISE
[2017-10-30 19:15] LABS: Acanthocytes SLIGHT = 1-5 cells (100X) (None Seen); Anisocytosis MODERATE=16-30 cells (100X) (0-5/hpf); Hypochromia SLIGHT = 6-15 cells (100X) (0-5/hpf); MDiff Complete? YES; Macrocytosis SLIGHT = 6-15 cells (100X) (0-5/hpf); Microcytosis SLIGHT = 6-15 cells (100X) (0-5/hpf); Ovalocytes SLIGHT = 2-5 cells (100X) (0-1/hpf); PLT Morphology Comment Appears Adequate; Poikilocytosis SLIGHT = 6-15 cells (100X) (0-5/hpf); Polychromasia SLIGHT = 2-3 cells (100X) (0-2/hpf); Schistocytes SLIGHT = 2-5 cells (100X) (0-1/hpf); Tear Drops SLIGHT = 2-5 cells (100X) (0-1/hpf)
[2017-10-30 19:26] LABS: ALT (SGPT) 9 U/L (8-55); AST (SGOT) 18 U/L (5-34); Albumin 3.4 g/dL (3.4-4.8); Alkaline Phosphatase 116 U/L (40-150); Anion Gap 20 mmol/L (10-20); BUN (Urea Nitrogen) 57 mg/dL (9.8-20.1); Bilirubin, Total 0.5 mg/dL (0.2-1.2); CK (CPK) 55 U/L (29-168); Calc. Creatinine Clearance 0 mL/min (70-130); Calcium 9.4 mg/dL (7.8-10.44); Carbon Dioxide 17 mmol/L (23-31); Chloride 97 mmol/L (98-107); Estimated GFR-MDRD 26; Globulin 4.3 g/dL (2.4-3.5); Glucose 107 mg/dL (83-110); Lipase 20 U/L (8-78); Potassium 4.2 mmol/L (3.5-5.1); Protein, Total 7.7 g/dL (6.0-8.3); Sodium 130 mmol/L (136-145)
[2017-10-30 19:30] LABS: CKMB 3.6 ng/mL (0-6.6)
[2017-10-30 19:46] LABS: Troponin I 0.134 ng/mL (< 0.028)
[2017-10-30] MEDS ORDERED: Aspirin 300 MG Suppository ONE (21:10)
--- NOTE | 2017-10-30 22:19 | CT ---
NONCONTRAST CT HEAD: 10/30/17 HISTORY: Altered mental status. COMPARISON: 09/04/17. FINDINGS: Again noted are chronic small vessel ischemic changes and cerebral volume loss which have not signifi cantly progressed from prior study. Tiny remote lacunar infarction left thalamus as well as in each b facundo ganglia are again seen and unchanged and stable. There is no evidence of an acute cortical infar ction, hemorrhage, mass effect, or midline shift. The visualized paranasal sinuses and mastoid air ce lls are clear. Small lytic lesion within the left parietal bone is again seen and stable from prior s tudy as well as stable compared to a study in 2015. This may represent a small hemangioma. IMPRESSION: 1. No acute intracranial abnormalities demonstrated. 2. 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 3. Stable encephalomalacia in the left temporal lobe. POS: DENISE
[2017-10-30 22:38] LABS: Troponin I 0.149 ng/mL (< 0.028)
[2017-10-31] MEDS ORDERED: Acetaminophen 325 MG TAB PO PRN (00:27)
[2017-10-31] MEDS ORDERED: Ondansetron ODT 4 MG TAB SL PRN (00:27)
[2017-10-31] MEDS ORDERED: Sodium Chloride 0.9% 1,000 ML IV SCH (00:27)
[2017-10-31] MEDS ORDERED: Ondansetron HCl/PF 4 MG/2 ML Vial IVP PRN (00:27)
[2017-10-31] MEDS ORDERED: Fleet Enema 133 ML BOT PR PRN (00:31)
[2017-10-31] MEDS ORDERED: Bisacodyl 5 MG TAB PO PRN (00:31)
[2017-10-31 01:11] VITALS: BMI 32.9
[2017-10-31 01:51] LABS: Cardiac Risk 4.5 (Less than 4.5)
[2017-10-31 01:56] LABS: Troponin I 0.151 ng/mL (< 0.028)
[2017-10-31] MEDS ORDERED: Heparin 25,000 units/D5W 500 ML IVPB SCH (04:45)
[2017-10-31] MEDS ORDERED: Heparin 10,000 UNITS/ 10 ML VIAL SLOW IVP SCH (04:45)
[2017-10-31 05:05] LABS: #Eosinphils 0.1 thou/uL (0.0-0.7); #Lymphocytes 1.7 thou/uL (1.20-3.40); #Monocytes 0.7 thou/uL (0.11-0.59); #Neutrophils 3.5 thou/uL (1.40-6.50); %Basophils 0.5 % (0.0-1.0); %Eosinophils 2.1 % (0.0-10.0); %Lymphocytes 28.2 % (21.0-51.0); %Neutrophils 57.2 % (42.0-75.0); Hemoglobin 10.9 g/dL (12.0-16.0); Mean Corpuscular HGB CONC 30.8 g/dL (32.0-36.0); Mean Corpuscular Hemoglobin 20.2 pg (27.0-31.0); Mean Corpuscular Volume 65.4 fL (78.0-98.0); Platelet Count 263 thou/uL (130-400); RBC Distribution Width 21.4 % (11.5-14.5); Red Blood Cell (RBC) Count 5.38 mill/uL (4.20-5.40); White Blood Cell (WBC) Count 6.2 thou/uL (4.8-10.8)
[2017-10-31 05:11] LABS: Albumin 3.1 g/dL (3.4-4.8); Anion Gap 18 mmol/L (10-20); BUN (Urea Nitrogen) 54 mg/dL (9.8-20.1); BUN/Creatinine Ratio 28.42; Calc. Creatinine Clearance 28 mL/min (70-130); Calcium 9.2 mg/dL (7.8-10.44); Carbon Dioxide 20 mmol/L (23-31); Chloride 100 mmol/L (98-107); Estimated GFR-MDRD 30; Glucose 83 mg/dL (83-110); Phosphorus 3.4 mg/dL (2.3-4.7); Potassium 3.8 mmol/L (3.5-5.1); Sodium 134 mmol/L (136-145)
--- NOTE | 2017-10-31 05:30 | HP ---
CHIEF COMPLAINT: Per daughter, patient has decreased appetite and epigastric pain (per [facility]) . HISTORY OF PRESENT ILLNESS: This is an 87-year-old -[place] lady with past medical history o f hypertension, TIA, chronic kidney disease, stage 3, hysterectomy in the past, CHF, presenting to [facility] ED from [facility] with decreased appetite in the past 5 days and epigastric pain, which was note d by nursing staff. The patient herself states that she does not have epigastric pain; however, sherrie ent's daughter states that [facility] staff noted that patient was pointing to her epigastric regio n and they are assuming that this might be the cause of patient's decreased appetite. The patient's daughter states that patient has not been able to tolerate anything by mouth. Patient refuses to eat or drink, and patient is not at her baseline level. Per daughter, patient's baseline, patient is ab le to communicate, patient is very active. Per daughter, last month, patient was in the hospital for similar episode of epigastric discomfort and patient was worked up and patient was found to have rashi betes at the time. REVIEW OF SYSTEMS: Unable to be obtained. Patient is nonverbal. Patient is not a good historian. PAST MEDICAL HISTORY: Significant for hypertension, transient ischemic attack, chronic kidney diseas e stage 3, congestive heart failure with ejection fraction of 55%-60% noted on previous echo, diabete s mellitus type 2. PAST SURGICAL HISTORY: Hysterectomy. SOCIAL HISTORY: Denies tobacco, alcohol, recreational drug use. FAMILY HISTORY: Reviewed and noncontributory. CODE STATUS: Patient is DNR/DNI discussed with the patient's daughter who is the surrogate. ALLERGIES: No known drug allergy. CURRENT MEDICATIONS: Patient takes amlodipine 10 mg b.i.d., ferrous sulfate 325 mg b.i.d., lisinopri l 5 mg daily, multivitamins and Lasix 60 mg daily. PHYSICAL EXAMINATION: VITAL SIGNS: In the ED, blood pressure 121/84, pulse 98, respiratory rate of 18, temperature 97.8, O 2 sat 100 on 2 liters of nasal cannula. GENERAL: Patient is lying in bed, does not appear to be in any acute distress. Patient does not spe ak when questioned. HEENT: Normocephalic, atraumatic. Pupils are equally round and reactive to light. Extraocular move ments are intact. No scleral icterus. Trachea is midline. No JVDs. NECK: Supple. Mucous membranes are dry. LUNGS: Clear to auscultation bilaterally. No wheezing. No rales, no rhonchi appreciated. CARDIOVASCULAR: S1, S2, regular rate and rhythm. No murmurs, no rubs, no gallops appreciated. ABDOMEN: Obese abdomen, positive bowel sounds in all quadrants. No palpable masses. No peritoneal signs, no rigidity, no guarding. EXTREMITIES: Upper extremities, patient has good movements at the upper extremities, good pulses demario aterally. Lower extremity, patient has a right foot ulcer with a bandage in place. Patient has weak ness in the lower extremities bilaterally. NEUROLOGIC: No focal neurologic deficits noted. SKIN: Patient has skin decolorization at the lower extremities and patient has right foot ulceration . Skin is dry. PSYCHIATRIC: Normal affect. Patient is alert, oriented x0. IMAGING: Patient has left ventricular hypertrophy. CT of the brain showed no acute intracranial abn ormalities. There is chronic small vessel ischemic changes and cerebral volume loss with stable lacu mike infarctions in basal ganglia and left thalamus stable, encephalomalacia in the left temporal lobe . Chest x-ray, no acute cardiopulmonary process, cardiomegaly ectasia and tortuosity of the thoracic aorta. LABORATORY DATA: WBC 5.8, hemoglobin is 11.6, hematocrit is 39.4, MCV 66.8, RDW 22.2, platelet of 25 3. Electrolytes: Sodium is 130, potassium is 4.2, chloride is 92, carbon dioxide of 17, BUN is 67, creatinine is 2.13, troponin 0.134, 0.149, 0.151, triglycerides 67, cholesterol 144. TSH 0.55. ASSESSMENT AND PLAN: This is an 87-year-old -[place] female being admitted for: 1. Ldd-MI-ixgqige elevation myocardial infarction. Patient currently has positive troponins. We mauro ve consulted Cardiology. We will start the patient on aspirin and Plavix. We will start the patient on heparin. We will monitor the patient. We will follow up with Cardiology regarding their recomme ndations. 2. Acute on chronic kidney disease. Patient's GFR is 26, patient is in chronic kidney disease, stag e 4, creatinine is 2.13. We have consulted Nephrology. We will follow up with Nephrology regarding their recommendation. We will continue patient on Lasix. We will hold patient's lisinopril due to a cute kidney injury on chronic kidney disease. 3. Anemia due to iron deficiency. Patient is on Feosol. We will continue patient on Feosol. 4. Poor appetite. We have ordered for swallow evaluation, was ordered Megace to help stimulate sherrie ent's appetite. We will continue to monitor the patient and we will continue the patient on a diet a t this time. 5. History of diastolic congestive heart failure, currently stable. We will continue patient on Las ix. Cardiology has been consulted to follow up with their recommendations. Patient's echo in the hi st showed ejection fraction between 55%-60%. 6. History of hypertension. Currently, patient's blood pressure is controlled. We will continue to monitor the patient. 7. Deep venous thrombosis and gastrointestinal prophylaxis. Patient is on heparin. We will continu e patient on Pepcid.
[2017-10-31] MEDS: traMADol HCl 50 MG TAB PO SCH ×4 (05:38→18:10)
[2017-10-31] MEDS: Furosemide 20 MG TAB PO SCH (08:22)
[2017-10-31] MEDS: Famotidine/PF 20 mg/2ml Vial SLOW IVP SCH (08:23)
[2017-10-31] MEDS: Clopidogrel Bisulfate 75 MG TAB PO SCH (08:23)
[2017-10-31] MEDS: Ferrous Sulfate 325 MG TAB PO SCH ×2 (08:24→20:52)
[2017-10-31] MEDS: Megestrol Acetate 40 MG TAB PO SCH (08:24)
[2017-10-31] MEDS: Docusate 100 MG CAP PO SCH ×2 (08:25→20:52)
[2017-10-31] MEDS ORDERED: Heparin 5,000 UNITS/ML VIAL SC SCH (09:00)
[2017-10-31 09:56] LABS: Iron 27 ug/dL (50-170); Iron Binding Capacity, Total 266 mcg/dL (265-497)
[2017-10-31] MEDS: Sodium Chloride 0.9% 1,000 ML IV SCH (12:05)
--- NOTE | 2017-10-31 12:40 | CON-2 ---
DATE OF CONSULTATION: 10/31/2017 Ismael Sierra MD, dictating for Mahsa Arias M.D. CHIEF COMPLAINT: Per group home, decreased appetite and epigastric pain. Per patient, no complaint. HISTORY OF PRESENT ILLNESS: Patient is an 87-year-old -[place] female who presents from a group home with a decreased appetite in the last 5 days along with some epigastric pain and noted by nursing staff. Patient did not complain of any epigastric pain during my interview; however, no patient's family or group home staff was available during this interview. The patient states that she is unaware why she is in the hospital and states that she was doing well at home without any complaints of shortness of breath, chest pain or abdominal pain. Patient denied any bloody stools any nausea, vomiting, diarrhea , and thought that she was doing well overall. ALLERGIES: No known drug allergies. PAST MEDICAL HISTORY: Hypertension; past transient ischemia attacks; chronic kidney disease, stage 3; CHF with ejection fraction of 55-60%; diabetes mellitus , type 2. PAST SURGICAL HISTORY: Hysterectomy. SOCIAL HISTORY: The patient denies tobacco, alcohol, or recreational drug use. FAMILY HISTORY: Noncontributory to this case. CURRENT MEDICATIONS: 1. Docusate 300 mg p.o. at bedtime p.r.n. 2. Ferrous sulfate 325 mg p.o. b.i.d. 3. Amlodipine 10 mg p.o. daily. 4. Lisinopril 5 mg p.o. daily. 5. Acetaminophen 500 mg p.o. q.6 hours. 6. Furosemide 20 mg p.o. daily. 7. Multivitamin. 8. Aspirin 325 mg p.o. daily. 9. Tramadol 50 mg p.o. q.6 hours. 10. Atorvastatin 10 mg p.o. at bedtime. 11. Pro-Stat AWC liquid 30 mL p.o. b.i.d. REVIEW OF SYSTEMS: Patient is an unreliable historian. No family or group home staff is available. However, she does not complain of any things. A 12- point review of systems was attempted to be completed was otherwise negative unless listed above in the HPI. PHYSICAL EXAMINATION: VITAL SIGNS: Blood pressure was 95/54, temperature 97.5, pulse was 87, respirations 16, oxygen saturation 98% on 2 liters nasal cannula. GENERAL: Elderly female, lying in bed in no acute distress. Patient answers questions appropriately. HEENT: Normocephalic, atraumatic. NECK: Supple. No JVD. Trachea midline. LUNGS: Clear to auscultation bilaterally. No crackles appreciated. CARDIOVASCULAR: Regular rate and rhythm. No murmurs appreciated. ABDOMEN: Obese abdomen, positive bowel sounds, no tenderness. EXTREMITIES: Pulses equal bilaterally. No edema present. NEUROLOGIC: No focal neurologic deficits noted. Patient is alert and oriented x3 during this interview. 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 On 10/30/2017, the patient also underwent a chest x-ray that showed no acute cardiopulmonary process, cardiomegaly, ectasia and tortuosity of the thoracic aorta. LABORATORY DATA: Patient's white blood cells 6.2, hemoglobin 10.9, hematocrit 35.2, platelet count 263. Sodium 134, potassium 3.8, chloride 100, carbon dioxide 20, BUN 44, creatinine 1.9, glucose 83. Troponin I 0.134, trended up to 0.149 and 0.151. TSH of 0.552. ASSESSMENT AND PLAN: An 87-year-old -[place] female admitted for; 1. Acute on chronic diastolic congestive heart failure. The patient has had mildly elevated troponins; however, these troponins are actually lower than her previous admissions as there is little concern for non-ST elevation myocardial infarction. We will continue other home meds at this time. 2. Chronic kidney disease 3. Patient's current GFR is estimated at 30, which is approximately her baseline. Nephrology has been consulted and we will defer to those recommendations. The patient is continued on Lasix to help with the symptoms from a diastolic congestive heart failure. However, all other medications will be renally dosed. 3. Anemia due to iron deficiency. Patient is on ferrous sulfate. Continue as prescribed. 4. History of hypertension. Patient's blood pressure is well controlled. Continue to monitor. 5. Poor appetite. Primary team is ordered a swallow evaluation and Megace to help stimulate appetite. Primary team as well as nursing staff will continue to monitor diet at this time. In regards to Cardiology involvement with this case, the patient is at her baseline, seems to be doing well and is not in acute congestive heart failure exacerbation, is not having acute chest pain or symptoms. Her blood pressure has been well controlled at this time. No further intervention will be planned per Cardiology and we will sign off. Please feel free to contact us again if other problems arise. This patient was seen and examined with Dr. Isidoro Arias, Cardiology attending who is in agreement with this plan. LUCEROD
--- NOTE | 2017-10-31 13:14 | PDOC.PN ---
- Subjective Encounter Start Date: 10/31/17 Encounter Start Time: 13:12 Subjective: no overnight events. Pt barely opens eyes then falls back asleep -: baseline unknown.no family at bedside - Objective Resuscitation Status: Resuscitation Status DNR:Do Not Resuscitate MAR Reviewed: Yes Vital Signs & Weight: Vital Signs (12 hours) Temp Pulse Resp BP Pulse Ox 10/31/17 10:47 97.5 F L 87 16 95/54 L 98 10/31/17 07:15 96.3 F L 80 16 99/63 98 10/31/17 04:00 96.9 F L 67 16 116/60 10/31/17 02:20 96.9 F L 67 16 100 Weight Admit Weight 192 lb Weight 192 lb I&O: 10/30/17 10/31/17 11/01/17 06:59 06:59 06:59 Intake Total 240 Balance 240 Result Diagrams: 10/31/17 04:48 10/31/17 04:48 Additional Labs: Laboratory Tests 09/04/17 09/11/17 09/23/17 09:48 13:55 14:48 BUN Creatinine 1.68 H Troponin I 0.270 H 0.101 H Triglycerides Cholesterol LDL Cholesterol, Calc 10/20/17 10/30/17 10/30/17 00:33 18:46 18:46 BUN 23 H 57 H Creatinine 1.39 H 2.13 H Troponin I 0.134 H Triglycerides Cholesterol LDL Cholesterol, Calc 10/30/17 10/31/17 10/31/17 22:05 01:19 01:19 BUN Creatinine Troponin I 0.149 H 0.151 H Triglycerides 67 Cholesterol 144 LDL Cholesterol, Calc 99 10/31/17 04:48 BUN 54 H Creatinine 1.90 H Troponin I Triglycerides Cholesterol LDL Cholesterol, Calc Phys Exam - Physical Examination Constitutional: NAD HEENT: PERRLA, moist MMs, sclera anicteric, oral pharynx no lesions Neck: no nodes, no JVD, supple, full ROM Respiratory: no wheezing, no rales, no rhonchi, clear to auscultation bilateral Cardiovascular: RRR, no significant murmur, no rub Gastrointestinal: soft, non-tender, no distention, positive bowel sounds Musculoskeletal: no edema, pulses present Neurological: non-focal, normal sensation, moves all 4 limbs Psychiatric: normal affect Dx/Plan (1) Troponin level elevated Code(s): R74.8 - ABNORMAL LEVELS OF OTHER SERUM ENZYMES Status: Acute Comment: Chronic elevation.Due to CKD (2) Acute kidney injury superimposed on CKD Code(s): N17.9 - ACUTE KIDNEY FAILURE, UNSPECIFIED; N18.9 - CHRONIC KIDNEY DISEASE, UNSPECIFIED Status: Acute Comment: Improved (3) ANGELINA (iron deficiency anemia) Code(s): D50.9 - IRON DEFICIENCY ANEMIA, UNSPECIFIED Status: Chronic (4) FTT (failure to thrive) in adult Status: Acute (5) Generalized weakness Code(s): R53.1 - WEAKNESS Status: Acute (6) Physical deconditioning Code(s): R53.81 - OTHER MALAISE Status: Acute (7) Dementia Code(s): F03.90 - UNSPECIFIED DEMENTIA WITHOUT BEHAVIORAL DISTURBANCE Status: Chronic Qualifiers: Comment: stable (8) HTN (hypertension) Code(s): I10 - ESSENTIAL (PRIMARY) HYPERTENSION Status: Chronic Qualifiers: Comment: Monitor vital signs, titrate antihypertensives as needed - Plan PT/OT, out of bed/ambulate, DVT proph w/heparin, DVT proph w/SCDs Troponon levation is chronic .No evidence of ACS. Stop heparin drip -: Cr at baseline. monitor. restart SANDRA-I w parameters for BP -: Cont megace.Home meds as below.on ASA,plavix -: Check Iron levels and give IV Iron if low. -: hold amlodipine as BP on lower side. gentle IVF. * .am labs * Consult PCT for goals of care.Pt seems to be baseline. * HD stable. * will transfer to medical if BP stable later today Review of Systems - Review of Systems Other: can not be obtained due to somnolence - Medications/Allergies Allergies/Adverse Reactions: Allergies Allergy/AdvReac Type Severity Reaction Status Date / Time No Known Allergies Allergy Verified 09/04/17 06:43 Medications: Current Medications Atorvastatin Calcium (Lipitor) 10 mg PO HS [facility] Bisacodyl (Dulcolax) 10 mg PO DAILYPRN PRN PRN Reason: Constipation Clopidogrel Bisulfate (Plavix) 75 mg PO DAILY [facility] Last Admin: 10/31/17 08:23 Dose: 75 mg Docusate Sodium (Colace) 100 mg PO BID [facility] Last Admin: 10/31/17 08:25 Dose: 100 mg Famotidine (Pepcid) 20 mg SLOW IVP DAILY [facility] Last Admin: 10/31/17 08:23 Dose: 20 mg Ferrous Sulfate (Feosol) 325 mg PO BID [facility] Last Admin: 10/31/17 08:24 Dose: 325 mg Furosemide (Lasix) 20 mg PO DAILY [facility] Last Admin: 10/31/17 08:22 Dose: 20 mg Heparin Sodium (Porcine) (Heparin 1,000 Units/Ml (10 Ml)) 0 units SLOW IVP ASDIR [facility]; Protocol Last Admin: 10/31/17 05:18 Dose: 4,000 unit Sodium Chloride (Normal Saline 0.9%) 1,000 mls @ 30 mls/hr IV .Q24H [facility] Last Admin: 10/31/17 12:05 Dose: 1,000 mls Megestrol Acetate (Megace) 40 mg PO DAILY [facility] Last Admin: 10/31/17 08:24 Dose: 40 mg Sodium Biphosphate/Sodium Phosphate (Fleet Enema) 133 ml [place] ONE PRN PRN Reason: Constipation Stop: 11/02/17 00:32 Sodium Chloride (Flush - Normal Saline) 10 ml IVF Q12HR [facility] Last Admin: 10/31/17 08:26 Dose: 10 ml Sodium Chloride (Flush - Normal Saline) 10 ml IVF PRN PRN PRN Reason: Saline Flush Tramadol HCl (Ultram) 50 mg PO Q6HR [facility] Last Admin: 10/31/17 12:05 Dose: Not Given
[2017-10-31] MEDS ORDERED: Docusate 100 MG CAP PO PRN (13:15)
--- NOTE | 2017-10-31 14:05 | CON ---
DATE OF CONSULTATION: 10/31/2017 NEPHROLOGY CONSULTATION REASON FOR CONSULTATION: Elevated creatinine. HISTORY OF PRESENT ILLNESS: This is an 87-year-old female who presented to the hospital early this morning for decreased appetite and epigastric pain. The patient cannot give any detailed history. Her creatinine baseline has been around 1.6-1.4, BUN is 0.9 in August which increased to 2.1, so I was consulted. PAST MEDICAL HISTORY: Acute kidney injury, hypertension, congestive heart failure and history of hysterectomy. SOCIOECONOMIC HISTORY: No alcohol. FAMILY HISTORY: Negative for ESRD. REVIEW OF SYSTEMS: A 15-point review of systems was performed and was negative except for positives noted above. GENERAL: Weakness- HEAD: Headache- NECK: No swelling or lumps. NOSE: No epistaxis or discharge. EYES: No diplopia or pain. RESPIRATORY: Dyspnea- CARDIOVASCULAR: Chest pain- GASTROINTESTINAL: Nausea- /CNC GRINDER: Hematuria- MUSCULOSKELETAL: No joint pain. NEUROPSYCHIATIC SYSTEMS: No suicidal ideation. No ideation. SKIN: Denies any rash or ulcer. CONSTITUTIONAL: No fever or chills. PHYSICAL EXAMINATION: GENERAL: Patient is awake, alert. VITAL SIGNS: Afebrile, pulse 87, breathing at 16, blood pressure 99/62. HEAD/NECK: Normocephalic. Atraumatic. EYES: EOMI. No deformity. EARS: Clear. No ulcers. NOSE: Intact. No lesions. MOUTH: Clear. No discharge. THROAT: Clear. No exudate. LUNGS: Clear. No crackles. CARDIAC: S1, S2. No rub. ABDOMEN: Benign. BS+. GENITALIA/RECTUM: Whitehead absent. BACK/EXTREMITIES: Edema 0+ Ulcer- NEUROLOGICAL: Alert and motor intact. SKIN: Rash- Bruise- LYMPHATICS: Edema- Ulcer- ASSESSMENT AND PLAN: 1. Anemia, stable. 2. Acute kidney injury most likely due to decreased effective arterial blood volume ATN Continue gentle hydration. 3. Acute tubular necrosis due to decreased . 4. Hypertension, stable. 5. Medications based on glomerular filtration rate are appropriate. No indication for dialysis. I will hold off on the Lasix and start low dose IV fluids. MTDD
--- NOTE | 2017-10-31 14:52 | ULT ---
BILATERAL RENAL ULTRASOUND COMPLETE: Date: 10/31/17 HISTORY: 87-year-old female with history of acute kidney insufficiency. FINDINGS: Right kidney measures 8.9 x 3.8 x 5.2 cm. Left kidney measures 7.3 x 3.9 x 4.3 cm. Renal cortices are somewhat diffusely hyperechoic, evidence for nonspecific chronic renal disease. No significant hydro nephrosis. Bladder appears unremarkable. No definite perinephric process. IMPRESSION: Somewhat small kidneys bilaterally with some general thinning of the renal cortices and some increase d echogenicity of the renal cortices, evidence for nonspecific chronic renal disease. No significant hydronephrosis or other acute process. POS: YAZH
--- NOTE | 2017-10-31 16:09 | EKG ---
Test Reason : Blood Pressure : / mmHG Vent. Rate : 064 BPM Atrial Rate : 064 BPM P-R Int : 202 ms QRS Dur : 092 ms QT Int : 386 ms P-R-T Axes : 070 027 -61 degrees QTc Int : 398 ms Normal sinus rhythm Nonspecific T wave abnormality Abnormal ECG When compared with ECG of 30-OCT-2017 18:08, (Unconfirmed) Premature supraventricular complexes are no longer Present Confirmed by DR. Melina STONER ([id number]) on 10/31/2017 4:09:11 PM Referred By: KOBY Confirmed By:DR. Melina STONER
[2017-10-31] MEDS: Atorvastatin Calcium 10 MG TAB PO SCH (20:52)
[2017-10-31] MEDS ORDERED: PRO STAT AWC PO SCH (21:00)
[2017-10-31] MEDS ORDERED: PROTEIN HYDROLYS PO SCH (21:00)
[2017-10-31] MEDS ORDERED: AMINO ACIDS PO SCH (21:00)
[2017-11-01] MEDS: traMADol HCl 50 MG TAB PO SCH ×5 (00:10→23:51)
[2017-11-01 05:03] LABS: Anion Gap 14 mmol/L (10-20); BUN (Urea Nitrogen) 46 mg/dL (9.8-20.1); Calc. Creatinine Clearance 33 mL/min (70-130); Calcium 9.2 mg/dL (7.8-10.44); Carbon Dioxide 23 mmol/L (23-31); Chloride 101 mmol/L (98-107); Estimated GFR-MDRD 37; Glucose 110 mg/dL (83-110); Potassium 3.3 mmol/L (3.5-5.1); Sodium 135 mmol/L (136-145)
[2017-11-01] MEDS ORDERED: Amlodipine 10 MG TAB PO SCH (09:00)
[2017-11-01] MEDS ORDERED: MULTIVITAMIN PO SCH (09:00)
[2017-11-01] MEDS ORDERED: IRON SUCROSE COMPLEX 100 MG/5 ML SLOW IVP SCH (09:00)
[2017-11-01] MEDS ORDERED: Lisinopril 10 MG TAB PO SCH ×2 (09:00)
[2017-11-01] MEDS: Clopidogrel Bisulfate 75 MG TAB PO SCH (09:25)
[2017-11-01] MEDS: Ferrous Sulfate 325 MG TAB PO SCH ×2 (09:25→20:33)
[2017-11-01] MEDS: Furosemide 20 MG TAB PO SCH (09:26)
[2017-11-01] MEDS: Docusate 100 MG CAP PO SCH ×2 (09:26→20:33)
[2017-11-01] MEDS: Aspirin 325 mg Enteric Coated Tablet PO SCH (09:26)
[2017-11-01] MEDS: Megestrol Acetate 40 MG TAB PO SCH (09:26)
[2017-11-01] MEDS: Lisinopril 5 MG TAB PO SCH (09:26)
[2017-11-01] MEDS: Famotidine/PF 20 mg/2ml Vial SLOW IVP SCH (09:27)
[2017-11-01] MEDS: Multivit, Therapeutic 1 TAB PO SCH (09:27)
--- NOTE | 2017-11-01 11:46 | PDOC.PN ---
- Subjective Encounter Start Date: 11/01/17 Encounter Start Time: 11:44 Subjective: feels much better today.awake and responding -: denies any CP/abd pain/N/V/SOB/cough -: ate little but not much - Objective Resuscitation Status: Resuscitation Status DNR:Do Not Resuscitate MAR Reviewed: Yes Vital Signs & Weight: Vital Signs (12 hours) Temp Pulse Resp Pulse Ox 11/01/17 11:23 99 11/01/17 09:26 64 11/01/17 08:00 97.6 F 64 16 99 Weight Admit Weight 192 lb Weight 192 lb I&O: 10/31/17 11/01/17 11/02/17 06:59 06:59 06:59 Intake Total 1335 80 Balance 1335 80 Result Diagrams: 10/31/17 04:48 11/01/17 04:44 Additional Labs: Laboratory Tests 09/23/17 10/20/17 10/30/17 14:48 00:33 18:46 Creatinine 1.68 H 1.39 H 2.13 H Iron TIBC % Saturation 10/31/17 10/31/17 11/01/17 01:19 04:48 04:44 Creatinine 1.90 H 1.60 H Iron 27 L TIBC 266 % Saturation 10 L Phys Exam - Physical Examination Constitutional: NAD HEENT: PERRLA, moist MMs, sclera anicteric, oral pharynx no lesions Neck: no nodes, no JVD, supple, full ROM Respiratory: no wheezing, no rales, no rhonchi, clear to auscultation bilateral Cardiovascular: RRR, no significant murmur Gastrointestinal: soft, non-tender, no distention, positive bowel sounds Musculoskeletal: no edema, pulses present Neurological: non-focal, normal sensation, moves all 4 limbs Psychiatric: normal affect, A&O x 3 Skin: no rash Dx/Plan (1) Acute kidney injury superimposed on CKD Code(s): N17.9 - ACUTE KIDNEY FAILURE, UNSPECIFIED; N18.9 - CHRONIC KIDNEY DISEASE, UNSPECIFIED Status: Acute Comment: Improving with IVF.monitor (2) Troponin level elevated Code(s): R74.8 - ABNORMAL LEVELS OF OTHER SERUM ENZYMES Status: Acute Comment: Chronic elevation.Due to CKD (3) ANGELINA (iron deficiency anemia) Code(s): D50.9 - IRON DEFICIENCY ANEMIA, UNSPECIFIED Status: Chronic Qualifiers: Iron deficiency anemia type: inadequate dietary iron intake Qualified Code( s): D50.8 - Other iron deficiency anemias (4) FTT (failure to thrive) in adult Status: Acute Comment: Encourage PO intake. Cont megace (5) Generalized weakness Code(s): R53.1 - WEAKNESS Status: Acute (6) Physical deconditioning Code(s): R53.81 - OTHER MALAISE Status: Acute (7) Dementia Code(s): F03.90 - UNSPECIFIED DEMENTIA WITHOUT BEHAVIORAL DISTURBANCE Status: Chronic Qualifiers: Comment: stable (8) HTN (hypertension) Code(s): I10 - ESSENTIAL (PRIMARY) HYPERTENSION Status: Chronic Qualifiers: Comment: Monitor vital signs, titrate antihypertensives as needed - Plan PT/OT, out of bed/ambulate, DVT proph w/SCDs cont gentle IVF w close monitoring of fluid status.monitor renal function -: cont home meds. -: am labs. -: norma [place] back to [place] tomorrow am if remains stable. -: OT,PT.PCT following. * . Review of Systems - Review of Systems Constitutional: weakness Respiratory: negative: Cough, Dry, Shortness of Breath, Hemoptysis, SOB with Excertion, Pleuritic Pain, Sputum, Wheezing Cardiovascular: negative: chest pain, palpitations, orthopnea, paroxysmal nocturnal dyspnea, edema, light headedness, other Gastrointestinal: negative: Nausea, Vomiting, Abdominal Pain, Diarrhea, Constipation, Melena, Hematochezia, Other Genitourinary: negative: Dysuria, Frequency, Incontinence, Hematuria, Retention , Other Other: limited ROS due to dementia - Medications/Allergies Allergies/Adverse Reactions: Allergies Allergy/AdvReac Type Severity Reaction Status Date / Time No Known Allergies Allergy Verified 09/04/17 06:43 Medications: Current Medications Aspirin (Ecotrin) 325 mg PO DAILY [facility] Last Admin: 11/01/17 09:26 Dose: 325 mg Atorvastatin Calcium (Lipitor) 10 mg PO HS [facility] Last Admin: 10/31/17 20:52 Dose: 10 mg Bisacodyl (Dulcolax) 10 mg PO DAILYPRN PRN PRN Reason: Constipation Clopidogrel Bisulfate (Plavix) 75 mg PO DAILY [facility] Last Admin: 11/01/17 09:25 Dose: 75 mg Docusate Sodium (Colace) 100 mg PO BID [facility] Last Admin: 11/01/17 09:26 Dose: 100 mg Docusate Sodium (Colace) 300 mg PO HS PRN PRN Reason: Constipation Famotidine (Pepcid) 20 mg SLOW IVP DAILY [facility] Last Admin: 11/01/17 09:27 Dose: 20 mg Ferrous Sulfate (Feosol) 325 mg PO BID [facility] Last Admin: 11/01/17 09:25 Dose: 325 mg Furosemide (Lasix) 20 mg PO DAILY [facility] Last Admin: 11/01/17 09:26 Dose: 20 mg Sodium Chloride (Normal Saline 0.9%) 1,000 mls @ 30 mls/hr IV .Q24H [facility] Last Admin: 10/31/17 12:05 Dose: 1,000 mls Lisinopril (Zestril) 5 mg PO DAILY [facility] Last Admin: 11/01/17 09:26 Dose: 5 mg Megestrol Acetate (Megace) 40 mg PO DAILY [facility] Last Admin: 11/01/17 09:26 Dose: 40 mg Multivitamins (Theragran) 1 tab PO DAILY [facility] Last Admin: 11/01/17 09:27 Dose: 1 tab Sodium Biphosphate/Sodium Phosphate (Fleet Enema) 133 ml [place] ONE PRN PRN Reason: Constipation Stop: 11/02/17 00:32 Sodium Chloride (Flush - Normal Saline) 10 ml IVF Q12HR [facility] Last Admin: 11/01/17 09:27 Dose: 10 ml Sodium Chloride (Flush - Normal Saline) 10 ml IVF PRN PRN PRN Reason: Saline Flush Tramadol HCl (Ultram) 50 mg PO Q6HR [facility] Last Admin: 11/01/17 05:48 Dose: Not Given
--- NOTE | 2017-11-01 13:46 | PRG ---
DATE OF SERVICE: 11/01/2017 SUBJECTIVE: The patient is an 87-year-old female, who is being seen for acute kidney injury. The pa tient denies any nausea, vomiting, or chest pain. PHYSICAL EXAMINATION: GENERAL: Patient is awake, alert. VITAL SIGNS: Afebrile, pulse 64, breathing 16, blood pressure was 115/62. GENERAL APPEARANCE AND MENTAL STATUS: Fair. HEAD/NECK: Normocephalic. Atraumatic. EYES: EOMI. No deformity. EARS: Clear. No ulcers. NOSE: Intact. No lesions. MOUTH: Clear. No discharge. THROAT: Clear. No exudate. LUNGS: Clear. No crackles. CARDIAC: S1, S2. No rub. ABDOMEN: Benign. BS+. GENITALIA/RECTUM: Whitehead absent. BACK/EXTREMITIES: Edema 0+ Ulcer- NEUROLOGICAL: Alert and motor intact. SKIN: Rash- Bruise- LYMPHATICS: Edema- Ulcer- LABORATORY: Hemoglobin 10.9, creatinine 1.6, potassium 3.3. ASSESSMENT AND RECOMMENDATIONS: 1. Acute kidney injury, improved. 2. Hyponatremia, stable. 3. Hypokalemia. Recommend potassium replacement. 4. Hypertension, stable. 5. Anemia, stable. 6. Medications based on the glomerular filtration rate are appropriate.
[2017-11-01] MEDS: Sodium Chloride 0.9% 1,000 ML IV SCH (14:09)
--- NOTE | 2017-11-01 14:29 | CON ---
ADDENDUM: DATE OF CONSULTATION: 10/31/2017 DATE OF ADMISSION: 10/30/2017 INDICATION FOR CONSULTATION: This is an 87-year-old female who was admitted with abdominal discomfor t and also failure to thrive with decreased p.o. intake and the family says she is not eating or drin preston and she was readmitted to the hospital as the family request. Essentially she did have some sli ght abnormalities of the cardiac enzymes which is chronic for her and this appears to be stable. Oth erwise, she denied any chest pain. She has no shortness of breath. HISTORY OF PRESENT ILLNESS: Please refer to the note dictated by the Family Practice resident. This is a very pleasant 87-year-old gentleman, who has been a patient of mine for many years. She has allen ffered small CVAs in the past. She does not communicate very well with her families present. She is having no complaints at this time. She denies any abdominal pain; however, she has had some abdomin al discomfort in the past. Her enzymes show slight elevation of the cardiac enzymes, the troponin I which still indeterminate. Her EKG does not show any evidence of ischemia. She does have a normal s inus rhythm, despite being 87 years old. She has no evidence of ischemia, no evidence of previous my ocardial infarctions. At this time, she is stable and there is no indication that we need to do any further cardiac workup at this time. As far as her past medical history, social history, family history, review of systems, medications, a llergies, please refer to the notes dictated by the Family Practice resident. PHYSICAL EXAMINATION: GENERAL: Reveals a very pleasant, well-developed, well-nourished female who is in no acute distress at this time. She is alert. She seems to be oriented. She is afebrile. Heart rate is in the 80s a nd shows a sinus rhythm. Respiratory rate 16, blood pressure is 95/54. HEENT: Shows head to be normocephalic and atraumatic. Carotid pulses are present without any bruits . CHEST: Clear to auscultation. There were no rales, rhonchi or wheezing. CARDIOVASCULAR: Exam reveals a regular rate and rhythm. She has a very soft systolic murmur at the apex as well as of the aortic area. ABDOMEN: Soft, nontender. I cannot palpate any masses. EXTREMITIES: Show no clubbing or cyanosis. The pedal pulses are difficult to palpate. NEUROLOGIC: The patient appears to be fatigued, but otherwise there were no gross focal motor defici ts that I could elicit at this time. SKIN: Warm and dry. IMPRESSION: 1. Elderly female with failure to thrive with decreased p.o. intake with some complaints of abdomina l discomfort. I believe she has had a CT scan performed which did not show any particular abnormalit ies. She has had a workup in the past. She also had another abdominal ultrasound on her last admiss ion, all of which are relatively unremarkable. She had a CT scan of her brain on this admission yest erday in the emergency room prior to being admitted, and this showed no acute processes. She did hav e some encephalomalacia of the left temporal lobe. Otherwise, there were no acute findings noted. S he has been admitted to the hospital on multiple admissions for various complaints either from abdomi nal pain, chronic anemia as well as some history of congestive heart failure and hypertension; lisa r, at this time she remains stable. 2. History of hypertension. This is well controlled at this time. 3. History of diabetes. This will be taken care by the primary care physicians. 4. History of chronic anemia. This also appears to be relatively stable at this time. There are no indications that she has had any significant acute bleeds. Her hemoglobin today was 10.9, yesterday was 11.6. This may be dilutional after she was given IV fluids. Her renal function shows a creatin ine of 1.9 which is relatively in line with her previous creatinines in the past. Her troponin I was 0.149, increased up to 0.151; however, on review of her previous visits, she has had a troponin I ba ck and may up to 2.62 and 2.7. There is no indication that we need to proceed at this time with any further cardiac workup. Certainly with cardiac catheterization, this could certainly be an injury to the kidneys and given her age of [age] years old and she is asymptomatic, it is best not to proceed wit h further intervention. Her echocardiogram has always show that she has a normal ejection fraction o f 50%-55%, but does have a history of diastolic dysfunction. At this time, I do not have any further recommendations from a cardiac standpoint and we more than happy to see her again should she have an y new symptoms, but at this time I will sign off. I will be more than happy to see her back in the office after she leaves the hospital in 2-4 weeks.
[2017-11-01] MEDS: Atorvastatin Calcium 10 MG TAB PO SCH (20:33)
--- NOTE | 2017-11-01 22:25 | EKG ---
Test Reason : CP Blood Pressure : / mmHG Vent. Rate : 083 BPM Atrial Rate : 083 BPM P-R Int : 200 ms QRS Dur : 096 ms QT Int : 366 ms P-R-T Axes : 082 012 206 degrees QTc Int : 430 ms Sinus rhythm with Premature supraventricular complexes Anterior infarct , age undetermined Abnormal ECG Confirmed by SUJATHA DEL VALLE DO ([id number]), supervising film or videotape editor KIESHA CAMARA ([id number]) on 11/01/2017 10:25:11 PM Referred By: Confirmed By:SUJATHA DEL VALLE DO
[2017-11-02 05:34] LABS: Anion Gap 15 mmol/L (10-20); BUN (Urea Nitrogen) 37 mg/dL (9.8-20.1); Calc. Creatinine Clearance 35 mL/min (70-130); Calcium 9.1 mg/dL (7.8-10.44); Carbon Dioxide 19 mmol/L (23-31); Chloride 107 mmol/L (98-107); Estimated GFR-MDRD 40; Glucose 110 mg/dL (83-110); Potassium 4.1 mmol/L (3.5-5.1); Sodium 137 mmol/L (136-145)
[2017-11-02 05:56] LABS: Hemoglobin 10.6 g/dL (12.0-16.0); Platelet Count 211 thou/uL (130-400)
[2017-11-02] MEDS: traMADol HCl 50 MG TAB PO SCH ×3 (06:07→19:08)
[2017-11-02] MEDS: Furosemide 20 MG TAB PO SCH (09:46)
[2017-11-02] MEDS: Lisinopril 5 MG TAB PO SCH (09:48)
[2017-11-02] MEDS: Docusate 100 MG CAP PO SCH ×2 (09:49→20:11)
[2017-11-02] MEDS: Clopidogrel Bisulfate 75 MG TAB PO SCH (09:49)
[2017-11-02] MEDS: Famotidine/PF 20 mg/2ml Vial SLOW IVP SCH (09:52)
[2017-11-02] MEDS: Aspirin 325 mg Enteric Coated Tablet PO SCH (09:54)
[2017-11-02] MEDS: Megestrol Acetate 40 MG TAB PO SCH (09:54)
[2017-11-02] MEDS: Multivit, Therapeutic 1 TAB PO SCH (09:55)
[2017-11-02] MEDS: Ferrous Sulfate 325 MG TAB PO SCH ×2 (09:55→20:11)
--- NOTE | 2017-11-02 11:27 | PDOC.PN ---
- Subjective Encounter Start Date: 11/02/17 Encounter Start Time: 11:25 Subjective: reports that she feels Ok but does not want to eat -: denies any nausea/vomiting/abd pain - Objective Resuscitation Status: Resuscitation Status DNR:Do Not Resuscitate MAR Reviewed: Yes Vital Signs & Weight: Vital Signs (12 hours) Temp Pulse Resp BP Pulse Ox 11/02/17 09:48 65 11/02/17 08:00 98.0 F 60 14 120/64 100 Weight Admit Weight 192 lb Weight 192 lb I&O: 11/01/17 11/02/17 11/03/17 06:59 06:59 06:59 Intake Total 1335 680 60 Balance 1335 680 60 Result Diagrams: 11/02/17 05:13 11/02/17 05:13 Additional Labs: labs reviewed Phys Exam - Physical Examination Constitutional: NAD HEENT: PERRLA, moist MMs, sclera anicteric, oral pharynx no lesions Neck: no nodes, no JVD, supple, full ROM Respiratory: no wheezing, no rales, no rhonchi, clear to auscultation bilateral Cardiovascular: RRR, no significant murmur, no rub Gastrointestinal: soft, non-tender, no distention, positive bowel sounds Musculoskeletal: no edema, pulses present Neurological: non-focal, normal sensation, moves all 4 limbs Psychiatric: normal affect Skin: no rash Dx/Plan (1) Acute kidney injury superimposed on CKD Code(s): N17.9 - ACUTE KIDNEY FAILURE, UNSPECIFIED; N18.9 - CHRONIC KIDNEY DISEASE, UNSPECIFIED Status: Acute Comment: Improving with IVF.monitor (2) Troponin level elevated Code(s): R74.8 - ABNORMAL LEVELS OF OTHER SERUM ENZYMES Status: Acute Comment: Chronic elevation.Due to CKD (3) ANGELINA (iron deficiency anemia) Code(s): D50.9 - IRON DEFICIENCY ANEMIA, UNSPECIFIED Status: Chronic Qualifiers: Iron deficiency anemia type: inadequate dietary iron intake Qualified Code( s): D50.8 - Other iron deficiency anemias (4) FTT (failure to thrive) in adult Status: Acute Comment: Encourage PO intake. Cont megace (5) Generalized weakness Code(s): R53.1 - WEAKNESS Status: Acute (6) Physical deconditioning Code(s): R53.81 - OTHER MALAISE Status: Acute (7) Dementia Code(s): F03.90 - UNSPECIFIED DEMENTIA WITHOUT BEHAVIORAL DISTURBANCE Status: Chronic Qualifiers: Comment: stable (8) HTN (hypertension) Code(s): I10 - ESSENTIAL (PRIMARY) HYPERTENSION Status: Chronic Qualifiers: Comment: Monitor vital signs, titrate antihypertensives as needed - Plan PT/OT, DVT proph w/SCDs PO intake still very poor & high risk of dehydration/JULIA.on IVF -: cont megace. -: will need to go back to [place] w hospice.awaiting consult -: renal Fx much improved. lasix on hold. monitor -: hemodynamically stable * . Review of Systems - Review of Systems Other: limited ROS due to dementia - Medications/Allergies Allergies/Adverse Reactions: Allergies Allergy/AdvReac Type Severity Reaction Status Date / Time No Known Allergies Allergy Verified 09/04/17 06:43 Medications: Current Medications Aspirin (Ecotrin) 325 mg PO DAILY [facility] Last Admin: 11/02/17 09:54 Dose: 325 mg Atorvastatin Calcium (Lipitor) 10 mg PO HS [facility] Last Admin: 11/01/17 20:33 Dose: 10 mg Bisacodyl (Dulcolax) 10 mg PO DAILYPRN PRN PRN Reason: Constipation Clopidogrel Bisulfate (Plavix) 75 mg PO DAILY [facility] Last Admin: 11/02/17 09:49 Dose: 75 mg Docusate Sodium (Colace) 100 mg PO BID [facility] Last Admin: 11/02/17 09:49 Dose: 100 mg Docusate Sodium (Colace) 300 mg PO HS PRN PRN Reason: Constipation Famotidine (Pepcid) 20 mg SLOW IVP DAILY [facility] Last Admin: 11/02/17 09:52 Dose: 20 mg Ferrous Sulfate (Feosol) 325 mg PO BID [facility] Last Admin: 11/02/17 09:55 Dose: 325 mg Furosemide (Lasix) 20 mg PO DAILY [facility] Last Admin: 11/02/17 09:46 Dose: 20 mg Sodium Chloride (Normal Saline 0.9%) 1,000 mls @ 30 mls/hr IV .Q24H [facility] Last Admin: 11/01/17 14:09 Dose: Not Given Lisinopril (Zestril) 5 mg PO DAILY [facility] Last Admin: 11/02/17 09:48 Dose: 5 mg Megestrol Acetate (Megace) 40 mg PO DAILY [facility] Last Admin: 11/02/17 09:54 Dose: 40 mg Multivitamins (Theragran) 1 tab PO DAILY [facility] Last Admin: 11/02/17 09:55 Dose: 1 tab Sodium Chloride (Flush - Normal Saline) 10 ml IVF Q12HR [facility] Last Admin: 11/02/17 09:58 Dose: Not Given Sodium Chloride (Flush - Normal Saline) 10 ml IVF PRN PRN PRN Reason: Saline Flush Tramadol HCl (Ultram) 50 mg PO Q6HR [facility] Last Admin: 11/02/17 06:07 Dose: Not Given
--- NOTE | 2017-11-02 12:24 | PRG ---
DATE OF SERVICE: 11/02/2017 SUBJECTIVE: This 87-year-old female being seen for acute kidney injury. The patient denies any naus ea, vomiting or chest pain. OBJECTIVE: GENERAL: Patient is awake. VITAL SIGNS: Afebrile, pulse 60, breathing 16, blood pressure 120/64. GENERAL APPEARANCE AND MENTAL STATUS: Fair. HEAD/NECK: Normocephalic. Atraumatic. EYES: EOMI. No deformity. EARS: Clear. No ulcers. NOSE: Intact. No lesions. MOUTH: Clear. No discharge. THROAT: Clear. No exudate. LUNGS: Clear. No crackles. CARDIAC: S1, S2. No rub. ABDOMEN: Benign. BS+. GENITALIA/RECTUM: [place] absent. BACK/EXTREMITIES: Edema 0+ Ulcer- NEUROLOGICAL: Alert and motor intact. SKIN: Rash- Bruise- LYMPHATICS: Edema- Ulcer- LABORATORY: Hemoglobin 10.6, creatinine 1.4. ASSESSMENT: 1. Hypertension, stable. 2. Anemia, stable. 3. Metabolic acidosis, stable. 4. Hypokalemia, resolved. 5. Chronic kidney disease stage 3, stable. 6. Acute kidney injury due to acute tubular necrosis, improving. I will sign off on this patient. The patient will follow up to see me in 1 month.
[2017-11-02] MEDS: Sodium Chloride 0.9% 1,000 ML IV SCH (15:09)
[2017-11-02] MEDS: Atorvastatin Calcium 10 MG TAB PO SCH (20:11)
[2017-11-03] MEDS: traMADol HCl 50 MG TAB PO SCH ×4 (00:10→19:04)
[2017-11-03 04:44] LABS: Anion Gap 15 mmol/L (10-20); BUN (Urea Nitrogen) 32 mg/dL (9.8-20.1); Calc. Creatinine Clearance 37 mL/min (70-130); Calcium 9.4 mg/dL (7.8-10.44); Carbon Dioxide 22 mmol/L (23-31); Chloride 107 mmol/L (98-107); Estimated GFR-MDRD 43; Glucose 116 mg/dL (83-110); Potassium 4.1 mmol/L (3.5-5.1); Sodium 140 mmol/L (136-145)
[2017-11-03] MEDS: Famotidine/PF 20 mg/2ml Vial SLOW IVP SCH (08:18)
[2017-11-03] MEDS: Clopidogrel Bisulfate 75 MG TAB PO SCH (08:19)
[2017-11-03] MEDS: Megestrol Acetate 40 MG TAB PO SCH (08:19)
[2017-11-03] MEDS: Aspirin 325 mg Enteric Coated Tablet PO SCH (08:19)
[2017-11-03] MEDS: Lisinopril 5 MG TAB PO SCH (08:19)
[2017-11-03] MEDS: Multivit, Therapeutic 1 TAB PO SCH (08:19)
[2017-11-03] MEDS: Docusate 100 MG CAP PO SCH ×2 (08:19→20:03)
[2017-11-03] MEDS: Ferrous Sulfate 325 MG TAB PO SCH ×2 (08:19→20:22)
[2017-11-03] MEDS: Furosemide 20 MG TAB PO SCH (08:19)
[2017-11-03] MEDS: Sodium Chloride 0.9% 1,000 ML IV SCH (08:27)
[2017-11-03] MEDS ORDERED: HumaLOG 300 UNITS/3 ML VIAL SC PRN ×2 (15:35)
[2017-11-03] MEDS ORDERED: Dextrose 50% Abboject 50 ML SYRINGE SLOW IVP PRN (15:35)
[2017-11-03] MEDS ORDERED: Dextrose 5% in Water 1,000 ML IV PRN (15:35)
--- NOTE | 2017-11-03 15:49 | PDOC.PN ---
- Subjective Encounter Start Date: 11/03/17 Encounter Start Time: 15:47 Subjective: says that she drank ensure today and does not feel hungry anymore -: still w Minimal PO intake per RN -: no ac events - Objective Resuscitation Status: Resuscitation Status DNR:Do Not Resuscitate MAR Reviewed: Yes Vital Signs & Weight: Vital Signs (12 hours) Temp Pulse Resp BP Pulse Ox 11/03/17 08:19 63 11/03/17 08:00 97.8 F 63 16 147/75 H 98 Weight Admit Weight 192 lb Weight 192 lb I&O: 11/02/17 11/03/17 11/04/17 06:59 06:59 06:59 Intake Total 680 620 50 Balance 680 620 50 Result Diagrams: 11/02/17 05:13 11/03/17 03:56 Phys Exam - Physical Examination Constitutional: NAD HEENT: PERRLA, moist MMs, sclera anicteric, oral pharynx no lesions Neck: no nodes, no JVD, supple, full ROM Respiratory: no wheezing, no rales, no rhonchi, clear to auscultation bilateral Cardiovascular: RRR, no significant murmur, no rub Gastrointestinal: soft, non-tender, no distention, positive bowel sounds Musculoskeletal: no edema, pulses present Neurological: non-focal, normal sensation, moves all 4 limbs Psychiatric: normal affect, A&O x 3 Skin: no rash Dx/Plan (1) Acute kidney injury superimposed on CKD Code(s): N17.9 - ACUTE KIDNEY FAILURE, UNSPECIFIED; N18.9 - CHRONIC KIDNEY DISEASE, UNSPECIFIED Status: Acute Comment: Improving with IVF.monitor (2) Troponin level elevated Code(s): R74.8 - ABNORMAL LEVELS OF OTHER SERUM ENZYMES Status: Acute Comment: Chronic elevation.Due to CKD (3) ANGELINA (iron deficiency anemia) Code(s): D50.9 - IRON DEFICIENCY ANEMIA, UNSPECIFIED Status: Chronic Qualifiers: Iron deficiency anemia type: inadequate dietary iron intake Qualified Code( s): D50.8 - Other iron deficiency anemias (4) FTT (failure to thrive) in adult Status: Acute Comment: Encourage PO intake. Cont megace (5) Generalized weakness Code(s): R53.1 - WEAKNESS Status: Acute (6) Physical deconditioning Code(s): R53.81 - OTHER MALAISE Status: Acute (7) Dementia Code(s): F03.90 - UNSPECIFIED DEMENTIA WITHOUT BEHAVIORAL DISTURBANCE Status: Chronic Qualifiers: Comment: stable (8) HTN (hypertension) Code(s): I10 - ESSENTIAL (PRIMARY) HYPERTENSION Status: Chronic Qualifiers: Comment: Monitor vital signs, titrate antihypertensives as needed - Plan PT/OT, DVT proph w/SCDs cont supportive care -: awaiting Hospice decision . -: cont to encourage PO intake.cont megace -: HD stable -: add ISS as pt is diabetic.accuchecks.DC to NH once PO intake better * . Review of Systems - Review of Systems Constitutional: negative: fever, chills, sweats, weakness, malaise, other Respiratory: negative: Cough, Dry, Shortness of Breath, Hemoptysis, SOB with Excertion, Pleuritic Pain, Sputum, Wheezing Cardiovascular: negative: chest pain, palpitations, orthopnea, paroxysmal nocturnal dyspnea, edema, light headedness, other Gastrointestinal: negative: Nausea, Vomiting, Abdominal Pain, Diarrhea, Constipation, Melena, Hematochezia, Other Genitourinary: negative: Dysuria, Frequency, Incontinence, Hematuria, Retention , Other Musculoskeletal: negative: Neck Pain, Shoulder Pain, Arm Pain, Back Pain, Hand Pain, Leg Pain, Foot Pain, Other - Medications/Allergies Allergies/Adverse Reactions: Allergies Allergy/AdvReac Type Severity Reaction Status Date / Time No Known Allergies Allergy Verified 09/04/17 06:43 Medications: Current Medications Aspirin (Ecotrin) 325 mg PO DAILY [facility] Last Admin: 11/03/17 08:19 Dose: 325 mg Atorvastatin Calcium (Lipitor) 10 mg PO HS [facility] Last Admin: 11/02/17 20:11 Dose: 10 mg Bisacodyl (Dulcolax) 10 mg PO DAILYPRN PRN PRN Reason: Constipation Clopidogrel Bisulfate (Plavix) 75 mg PO DAILY [facility] Last Admin: 11/03/17 08:19 Dose: 75 mg Dextrose/Water (Dextrose 50%) 25 gm SLOW IVP PRN PRN PRN Reason: Hypoglycemia Docusate Sodium (Colace) 100 mg PO BID [facility] Last Admin: 11/03/17 08:19 Dose: 100 mg Docusate Sodium (Colace) 300 mg PO HS PRN PRN Reason: Constipation Famotidine (Pepcid) 20 mg SLOW IVP DAILY [facility] Last Admin: 11/03/17 08:18 Dose: 20 mg Ferrous Sulfate (Feosol) 325 mg PO BID [facility] Last Admin: 11/03/17 08:19 Dose: 325 mg Furosemide (Lasix) 20 mg PO DAILY [facility] Last Admin: 11/03/17 08:19 Dose: 20 mg Glucagon (Glucagon) 1 mg IM PRN PRN PRN Reason: Hypoglycemia Sodium Chloride (Normal Saline 0.9%) 1,000 mls @ 30 mls/hr IV .Q24H [facility] Last Admin: 11/03/17 08:27 Dose: 1,000 mls Dextrose/Water (D5w) 1,000 mls @ 0 mls/hr IV .Q0M PRN PRN Reason: Hypoglycemia Insulin Human Lispro (Humalog) 0 units SC .MODERATE SLIDING SC PRN PRN Reason: Moderate Correctional Scale Insulin Human Lispro (Humalog) 0 units SC .BEDTIME SLIDING SC PRN PRN Reason: Bedtime Correctional Scale Lisinopril (Zestril) 5 mg PO DAILY [facility] Last Admin: 11/03/17 08:19 Dose: 5 mg Megestrol Acetate (Megace) 40 mg PO DAILY [facility] Last Admin: 11/03/17 08:19 Dose: 40 mg Multivitamins (Theragran) 1 tab PO DAILY [facility] Last Admin: 11/03/17 08:19 Dose: 1 tab Sodium Chloride (Flush - Normal Saline) 10 ml IVF Q12HR [facility] Last Admin: 11/03/17 10:52 Dose: Not Given Sodium Chloride (Flush - Normal Saline) 10 ml IVF PRN PRN PRN Reason: Saline Flush Tramadol HCl (Ultram) 50 mg PO Q6HR [facility] Last Admin: 11/03/17 11:34 Dose: Not Given
[2017-11-03] MEDS: Atorvastatin Calcium 10 MG TAB PO SCH (20:03)
[2017-11-04 05:16] LABS: Hemoglobin 10.4 g/dL (12.0-16.0); Platelet Count 225 thou/uL (130-400)
[2017-11-04 05:18] LABS: Anion Gap 13 mmol/L (10-20); BUN (Urea Nitrogen) 30 mg/dL (9.8-20.1); Calc. Creatinine Clearance 39 mL/min (70-130); Calcium 9.2 mg/dL (7.8-10.44); Carbon Dioxide 24 mmol/L (23-31); Chloride 109 mmol/L (98-107); Estimated GFR-MDRD 45; Glucose 148 mg/dL (83-110); Potassium 3.6 mmol/L (3.5-5.1); Sodium 142 mmol/L (136-145)
[2017-11-04] MEDS: traMADol HCl 50 MG TAB PO SCH ×3 (05:37→12:56)
[2017-11-04] MEDS: Aspirin 325 mg Enteric Coated Tablet PO SCH (10:51)
[2017-11-04] MEDS: Clopidogrel Bisulfate 75 MG TAB PO SCH (10:51)
[2017-11-04] MEDS: Ferrous Sulfate 325 MG TAB PO SCH (10:51)
[2017-11-04] MEDS: Famotidine/PF 20 mg/2ml Vial SLOW IVP SCH (10:51)
[2017-11-04] MEDS: Docusate 100 MG CAP PO SCH (10:51)
[2017-11-04] MEDS: Multivit, Therapeutic 1 TAB PO SCH (10:52)
[2017-11-04] MEDS: Lisinopril 5 MG TAB PO SCH (10:52)
[2017-11-04] MEDS: Megestrol Acetate 40 MG TAB PO SCH (10:52)
[2017-11-04] MEDS: Furosemide 20 MG TAB PO SCH (10:52)
--- NOTE | 2017-11-04 11:23 | DIS ---
DATE OF ADMISSION: 10/30/2017 DATE OF DISCHARGE: 11/04/2017 PRIMARY CARE PROVIDER: Listed as Dr. Anali Mata on one sheet and as Dr. Denise Varela on a nother. The patient is not clear which one. FINAL DIAGNOSES: Acute kidney failure on chronic kidney disease stage 3, abnormal levels of troponin , hypertension, dementia without behavioral disturbance, diabetes mellitus type 2, anorexia, anemia. DISCHARGE MEDICATIONS: Tramadol 50 mg p.o. q.6 hours p.r.n., Lasix 20 mg a day, multivitamins, lisin opril 5 mg a day, Lipitor 10 mg a day, amlodipine 10 mg a day, ferrous sulfate 325 mg a day, aspirin 325 mg a day, Megace 40 mg a day. ALLERGIES: No known drug allergies. Diet as tolerated. PENDING AT THE TIME OF DISCHARGE: Nothing. CODE STATUS: DNR. HOSPITAL COURSE: The patient admitted to the hospital with decreased appetite, some abdominal pain. Patient had abnormal troponins, was admitted with non-ST elevation SD, acute on chronic renal failur e with a GFR of 26 for appetite. Her initial laboratory showed sodium 130, potassium 4.2, BUN 57, cr eatinine 2.13. Her troponins were 0.134, 0.149, 0.151. Cholesterol studies were unremarkable. Live r functions were unremarkable. White count was 5.2, hemoglobin 11.6, platelet count 253,000. Brain CT, no acute abnormality intracranially. Chest x-ray shows no CHF infiltrate or heart failure, seen in consultation by Dr. Isidoro Arias of Cardiology who recommended no further cardiac studies. Dr. Maegd Norman who agreed with gentle hydration, Dr. Ismael Sierra. The patient's status has been stable dur ing her hospital stay. Her creatinine has improved from 2.13-1.33. She remains with low intake. Jonna phillips has been seen by palliative care, accepted by a [facility]. She is being transferr ed back to [facility] with [facility] following. Long-term prognosis is poor. MEDICATIONS: As above. DIET: As above.
[2017-11-04] MEDS: Sodium Chloride 0.9% 1,000 ML IV SCH (13:02)
[2017-11-04 13:28] VITALS: BP 120/62; TEMP 99
--- NOTE | 2017-11-06 14:54 | PQF ---
[employer] ANTON Baumann RANDALL *r [id number] CLINICAL DOCUMENTATION CLARIFICATION FORM: POST DISCHARGE Please exercise your independent, professional judgment in responding to the clarification form. Clinical indicators are provided on the bottom of this form for your review Please check appropriate box(s): Conflicting documentation was noted in the Medical Record, please clarify if patient is being treated/monitored for: [ ] ACUTE ON CHRONIC DIASTOLIC CONGESTIVE HEART FAILURE (diagnosis #1) [ ]CHRONIC DIASTOLIC CONGESTIVE HEART FAILURE -WITHOUT EXACERBATION- ( diagnosis #2) [ ] Other diagnosis [ ] Unable to determine In addition, please specify: Present on Admission (POA): [ ] Yes [ ] No [ ] Unable to determine . CLINICAL INDICATORS - SIGNS / SYMPTOMS/ LABS 10/31 CONSULT page 2 "ASSESSMENT AND PLAN: 1. Acute on chronic diastolic congetive heart failure" 10/31 CONSULT page 3 "In regards to Cariology involvement with this case, the patient is a t her baseline, seems to be doing well and is not in acute congestive heart failure exacerbation" RISK FACTORS mildly elevated troponins TREATMENT continue with home meds at this time (This form is maintained as a part of the permanent medical record) 2014 [employer] All Rights Reserved [email or web address] [phone] [email or web address]
== END 2017-11-04 15:56 | DRG 683 ==
LOC: ERS 17:51 → 2NO 23:05 → ONC 10-31 18:58
PROVIDERS: ADMIT Internal Medicine; ATTEND Internal Medicine
DX: N17.0 Acute kidney failure with tubular necrosis (principal); I13.0 Hypertensive heart and chronic kidney disease with heart failure and stage 1 through stage 4 chronic kidney disease, or unspecified chronic kidney disease; E87.2 Acidosis; I50.32 Chronic diastolic (congestive) heart failure; E11.22 Type 2 diabetes mellitus with diabetic chronic kidney disease; N18.3 Chronic kidney disease, stage 3 (moderate); D50.9 Iron deficiency anemia, unspecified; Z66 Do not resuscitate; R62.7 Adult failure to thrive; R10.13 Epigastric pain; G93.89 Other specified disorders of brain; Z86.73 Personal history of transient ischemic attack (TIA), and cerebral infarction without residual deficits; Z79.82 Long term (current) use of aspirin
CPT/HCPCS: 36415; 36416; 70450; 71045; 76770; 80048; 80053; 80061; 80069; 82550; 82553; 83540; 83550; 83690; 83880; 84443; 84484; 85014; 85018; 85025; 85049; 85730; 93005; 93010; A4216; G8978-GP-CM; G8979-GP-CM; G8980-GP-CM; G8996-GN-CK; G8997-GN-CK; J1644; S0028; S0179